=== PATIENT | female | born 1970 | race Two or more races ===

== ENCOUNTER 2021-05-17 16:57 | Inpatient (IN) | payer SELFPAY ==
[~2021-05-17] VITALS: Ht 165.1 cm; Wt 86.2 kg
[2021-05-17] VITALS (7 sets, daily range): BP systolic 139–165; BP diastolic 95–117
[2021-05-17] MEDS: PROPOFOL 100 ML IV PRN ×2 (17:08→23:37)
[2021-05-17] MEDS ORDERED: fentaNYL PF VIAL 100 MCG/2 ML VIAL IVP ONE (17:15)
[2021-05-17] MEDS ORDERED: MIDAZOLAM HCL/PF 5 MG/5 ML VIAL. IVP PRN (17:15)
[2021-05-17] MEDS ORDERED: IV NORMAL SALINE 1000ML BAG 1,000 ML IV ONE ×2 (17:15→19:00)
--- NOTE | 2021-05-17 17:17 | RAD ---
Exam: Chest one view INDICATION: Post intubation TECHNIQUE: Frontal view of the chest Comparisons: None FINDINGS: Endotracheal tube with tip approximately 3 cm above the albertina. The cardiomediastinal silhouette and pulmonary vessels are within normal limits. Subtle patchy bilateral airspace disease. No pleural effusion IMPRESSION: 1. Lines and tubes described above. 2. Subtle patchy bilateral airspace disease. Electronically signed by: Tova Goldstein MD (05/17/2021 5:15 PM) [place]
[2021-05-17 17:28] LABS: ACETAMIN < 2 mcg/ml (10-30); ETHANOL < 10 mg/dL (0-10); MAGNESIUM 1.8 mg/dL (1.8-2.4); PHOSPHORUS 6.1 mg/dL (2.6-4.7); SALIC 2.4 mg/dL (2.8-20.0)
[2021-05-17 17:35] LABS: BASO # 0.2 x10^3/uL (0.0-0.2); BASO % 1 % (0-3); EOS # 0.1 x10^3/uL (0.0-0.7); EOS % 0 % (0-3); HEMATOCRIT 46.2 % (36.0-47.0); HEMOGLOBIN 14.2 g/dL (12.0-15.5); LYMPH # 5.9 x10^3/uL (1.0-4.8); LYMPH % 25 % (24-48); MEAN CORPUSCULAR HEMOGLOBIN 33 pg (25-35); MEAN CORPUSCULAR HGB CONC 31 g/dL (31-37); MEAN CORPUSCULAR VOLUME 107 fL (79-100); MONO # 1.3 x10^3/uL (0.0-1.1); MONO % 6 % (0-9); NEUT # 16.2 x10^3/uL (1.8-7.7); NEUT % 68 % (31-73); PLATELET COUNT 538 x10^3/uL (140-400); RED BLOOD COUNT 4.32 x10^6/uL (3.50-5.40); RED CELL DISTRIBUTION WIDTH 14.6 % (11.5-14.5); WHITE BLOOD COUNT 23.6 x10^3/uL (4.0-11.0)
[2021-05-17 17:39] LABS: BASE EXCESS COOX -16 mmol/L (-3-3); HCO3 COOX 14 mmol/L (21-28); METHEMOGLOBIN 0.6 % (0.0-1.9); OXYHEMOGLOBIN 97.8 %; PCO2 COOX 50 mmHg (35-46); PO2 COOX 224 mmHg (75-108); SAT O2 COOX 99 % (92-99)
--- NOTE | 2021-05-17 17:39 | PHYS DOC ---
Past Medical History Additional Past Medical Histor: HTN, ALCOHOL ABUSE (KARLA HARTMANN DO) Past Surgical History: Tubal ligation (KARLA HARTMANN DO) General Adult EDM: Chief Complaint: SEIZURE HPI: HPI: 51-year-old female past medical history (per EMR review) of HTN and alcohol abuse, presents to the ED brought in by EMS after family members found patient unresponsive. No response with 0.5 mg Narcan IV. Patient started to seize with EMS and 10 mg of Versed was given. Patient being bagged upon ED arrival with facial cyanosis. Mother told ems that pt attempted suicide in 2006 and pt lost her son in 2018. (KARLA HARTMANN DO) Review of Systems: Review of Systems: Review of systems unobtainable due to medical condition (KARLA HARTMANN DO) Heart Score: C/O Chest Pain: N/A Risk Factors: Risk Factors: DM, Current or recent (<one month) smoker, HTN, HLP, family history of CAD, obesity. Risk Scores: Score 0 - 3: 2.5% MACE over next 6 weeks - Discharge Home Score 4 - 6: 20.3% MACE over next 6 weeks - Admit for Clinical Observation Score 7 - 10: 72.7% MACE over next 6 weeks - Early Invasive Strategies (KARLA HARTMANN DO) Current Medications: Current Medications Medications (Trade) Dose Ordered Sig/Anna Start Time Stop Time Status Last Admin Dose Admin Fentanyl Citrate (Fentanyl 2ml Vial) 100 mcg 1X ONCE 05/17/21 17:15 05/17/21 17:16 UNV Metoprolol Tartrate (Lopressor Vial) 5 mg 1X ONCE 05/17/21 17:45 05/17/21 17:46 UNV Midazolam HCl (Versed) 5 mg PRN 1X PRN 05/17/21 17:15 05/18/21 17:14 UNV Propofol 100 ml @ 0 mls/hr CONT PRN 05/17/21 17:15 UNV Sodium Chloride 1,000 ml @ 1,000 mls/hr 1X ONCE 05/17/21 17:15 05/17/21 18:14 UNV (KARLA HARTMANN DO) Physical Exam: PE: Constitutional: afebrile, central cyanosis, no hypertension after intubation HENT: Normocephalic, atraumatic, moist mucous membranes, suspect seizure activity - eyes and face twitching Eyes: Facial cyanosis, EOMI, conjunctiva normal, no discharge. Neck: Normal range of motion, supple, Cardiovascular: S1/2 present, tachycardic on arrival Lungs & Thorax: With agonal breathing, BVM on arrival with oral airway, bilateral breath sounds Abdomen: soft, no tenderness, obese Skin: Warm, dry, Extremities: no deformity, no lower extremity edema Neurologic: GCS6 E2V1M3, lifts up her right arm but it is repeativelty shaking (suspect more seizure activity), [facility] Current Patient Data: Labs: Laboratory Tests Test 05/17/21 17:00 Phosphorus Level 6.1 mg/dL (2.6-4.7) H Magnesium Level 1.8 mg/dL (1.8-2.4) Ammonia 71 mcmol/L (11-34) H Creatine Kinase 99 U/L (26-192) Salicylates Level 2.4 mg/dL (2.8-20.0) L Salicylate Last Dose Date Unknown Salicylate Last Dose Time Unknown Acetaminophen Level < 2 mcg/ml (10-30) L Acetaminophen Last Dose Date Unknown Acetaminophen Last Dose Time Unknonw Ethyl Alcohol Level < 10 mg/dL (0-10) Vital Signs: Vital Signs Date Time Temp Pulse Resp B/P (MAP) Pulse Ox O2 Delivery O2 Flow Rate FiO2 05/17/21 17:00 98 Ventilator 05/17/21 16:57 160 12 126/82 (97) 25.0 ([facility] ) EKG: EK sinus tachycardia 158, NAD, QTC 511, no T wave inversion, no ST elevation or ST depression ([facility] Radiology/Procedures: Radiology/Procedures: IMAGING REPORT Signed PATIENT: SANTO ATWOOD ACCOUNT: [id number] : 07/19/1969 LOCATION: ER AGE: 51 SEX: F EXAM STATUS: PRE ER ORD. PHYSICIAN: JESENIA LANGLEY APRN REASON: post intubation PROCEDURE: CHEST AP ONLY Exam: Chest one view INDICATION: Post intubation TECHNIQUE: Frontal view of the chest Comparisons: None FINDINGS: Endotracheal tube with tip approximately 3 cm above the albertina. The cardiomediastinal silhouette and pulmonary vessels are within normal limits. Subtle patchy bilateral airspace disease. No pleural effusion IMPRESSION: 1. Lines and tubes described above. 2. Subtle patchy bilateral airspace disease. Electronically signed by: Tova Rossi MD (05/17/2021 5:15 PM) [facility] DICTATED and SIGNED BY: TOVA ROSSI MD DATE: 05/17/21 [id number] Indication: Respiratory failure Consent: Unable to give consent due to emergent nature. Medications Used: see nursing note Procedure: The patient was placed in the appropriate position. Intubation was performed via medic with my supervision, 7.5 ett, 22 at the lip, secured with RT device. Initial confirmation of placement included adequate colorimetry, bilateral breath sounds, tube fogging, adequate chest rise, adequate pulse oximetry reading. A chest x-ray to verify correct placement of the tube showed appropriate tube position. The patient tolerated the procedure well. Complications: none. (KARLA HARTMANN DO) Course & Med Decision Making: Course & Med Decision Making Pertinent Labs and Imaging studies reviewed. (See chart for details) Concern for altered mental status with seizure-like activity and agonal respirations (DTS?, hyperammonemia?). Patient was intubated on ED arrival for airway protection. Systolic blood pressure after intubation was 130 but increased to 225. 1 dose of Lopressor given. Patient requiring additional doses of sedation, which could contribute to her blood pressure. Patient is tachycardic with a large white count and elevated ammonia. Broad spectrum abx started. Due to shift change pt was signed out to oncoming physician for further medical evaluation and dispo to the ICU. Critical Care: Authorized and Performed by: Karla Hartmann DO Total critical care time: approximately 30 minutes Due to a high probability of clinically significant, life threatening deterioration, the patient required my highest level of preparedness to intervene emergently and I personally spent this critical care time directly and personally managing the patient. This critical care time included obtaining a history; examining the patient; pulse oximetry; ventilator management if necessary; ordering and review of studies; arranging urgent treatment with development of a management plan; evaluation of patient's response to treatment; frequent reassessment; discussion with patient/family; and, discussions with other providers. This critical care time was performed to assess and manage the high probability of imminent, life-threatening deterioration that could result in multi-organ failure. It was exclusive of separately billable procedures and treating other patients and teaching time. Please see MDM section and the rest of the note for further information on patient assessment and treatment. (KARLA HARTMANN DO) Course & Med Decision Making Assumed care at shift change disposition pending labs radiologic imaging and reevaluation. CT imaging no acute abnormalities chest x-ray appears to be questionable pneumonia. Patient was febrile she was treated with rectal Tylenol. Patient flags for sepsis 2 L of fluids ordered patient received antibiotics from ordered by Dr. Hartmann. Patient's blood pressure noted to be elevated we will treat with labetalol 20 mg. Patient is currently sedated on propofol. Patient had episode where she started pulling at the tube. Patient required 2 propofol boluses 40 each. Results reviewed and discussed with daughter. Discussed patient with hospitalist (SUKH ROSALES DO) Dragon Disclaimer: Andria Disclaimer: This electronic medical record was generated, in whole or in part, using a voice recognition dictation system. (KARLA HARTMANN DO) Departure Departure Impression: Primary Impression: Altered mental status Additional Impressions: Seizure-like activity Sepsis Pneumonia Disposition: ADMITTED INPATIENT Condition: CRITICAL Referrals: NON,STAFF (PCP) KARLA HARTMANN DO May 17, 2021 17:38 SUKH ROSALES DO May 17, 2021 19:40
[2021-05-17 17:44] LABS: CALCIUM 8.9 mg/dL (8.5-10.1); CREATININE 1.1 mg/dL (0.6-1.0); GFR 52.2; POTASSIUM 3.2 mmol/L (3.5-5.1)
[2021-05-17] MEDS ORDERED: METOPROLOL IV PUSH 5 MG/5 ML VIAL. IVP ONE (17:45)
[2021-05-17] MEDS ORDERED: MULTIVIT INFUSN,ADULT 4,VIT K 10 ML, THIAMINE INJ 100 MG, FOLIC ACID INJ 1 MG in IV NOR... IV ONE (17:45)
[2021-05-17 17:50] LABS: ALBUMIN 3.8 g/dL (3.4-5.0); ALBUMIN/GLOBULIN RATIO 0.9 (1.0-1.7); DIRECT BILIRUBIN 0.1 mg/dL (0.0-0.2); TOTAL BILIRUBIN 0.1 mg/dL (0.2-1.0); TOTAL PROTEIN 7.9 g/dL (6.4-8.2)
[2021-05-17 17:58] LABS: BILIRUBIN,URINE NEGATIVE (NEG); CLARITY,URINE CLEAR; COLOR,URINE YELLOW; NITRITE,URINE NEGATIVE (NEG); PH,URINE 5.5 (<5.0-8.0); PROTEIN,URINE >=300 mg/dL (NEG-TRACE); UROBILINOGEN,URINE 0.2 mg/dL (0.2 mg/dL)
[2021-05-17] MEDS ORDERED: PROPOFOL 10 MG/ML (20ML) VIAL. IV ONE ×3 (18:00→19:30)
[2021-05-17] MEDS ORDERED: ETOMIDATE 20 MG/10 ML VIAL. IV ONE (18:00)
[2021-05-17] MEDS ORDERED: SUCCINYLCHOLINE 200 MG/10 ML VIAL. IV ONE (18:00)
[2021-05-17 18:05] LABS: BACTERIA,URINE 0 /HPF (0-FEW); BARBITURATES NEG (NEG); BENZODIAZEPINES POS (NEG); CANNABINOIDS POS (NEG); COCAINE NEG (NEG); METHADONE NEG (NEG); OPIATES NEG (NEG); PHENCYCLIDINE NEG (NEG); RBC,URINE OCC /HPF (0-2); WBC,URINE 0 /HPF (0-4)
[2021-05-17 18:07] LABS: AMPHETAMINE/METHAMPHETAMINE NEG (NEG)
[2021-05-17] MEDS ORDERED: COLC0.6C3 PO (18:11)
[2021-05-17] MEDS ORDERED: METO100T7 PO (18:11)
--- NOTE | 2021-05-17 18:29 | RAD ---
Exam Date: 05/17/2021 5:[address] HEAD AND C-SPINE WO Indication: Reason: change in mental status, SEIZURE, UNRESPONSIVE / Spl. Instructions: / History: . One or more of the following dose reduction techniques were utilized: *Automated exposure control (AEC) *Adjustment of mA and/or kV according to patient size *Use of iterative reconstruction technique *CT scan done according to ALARA, or ALARA/IMAGE GENTLY EXAMINATION: CT OF THE HEAD WITHOUT CONTRAST INDICATION: Trauma, head injury, headache; TECHNIQUE: Noncontrast helical axial CT images of the head were obtained. FINDINGS: The ventricles and sulci are normal for the patient's stated age. There is no evidence of acute int racranial hemorrhage, extra-axial collection, mass effect, midline shift, or acute territorial infarc t. No lesion of the skull base or the calvarium is seen. The visualized paranasal sinuses, mastoid ai r cells, and orbits are normal in appearance. IMPRESSION: No evidence for acute intracranial abnormality. EXAMINATION: CT OF THE CERVICAL SPINE WITHOUT CONTRAST Clinical Indication: Cervical spine pain after trauma Technique: Thin cut helical axial CT images through the cervical spine were obtained without contrast on a multi-detector CT scanner. Source data was then reconstructed into sagittal and coronal planes. Findings: Motion artifact limits evaluation slightly. Alignment is maintained without spondylolisthesis. Vertebral body heights are maintained without acute fracture. Mild multilevel degenerative changes ar e noted. No significant prevertebral soft tissue swelling is demonstrated. No severe osseous central canal stenosis is seen. Endotracheal tube is noted. Impression: No evidence of acute cervical spine fracture or subluxation. Electronically signed by: Jj Caceres MD (05/17/2021 6:27 PM) [facility]
[2021-05-17] MEDS ORDERED: PIPERACILLIN/TAZOBACTAM 4.5 GM in IV NORMAL SALINE 100ML 100 ML IV ONE (18:30)
[2021-05-17 18:48] LABS: % BANDS 10 % (0-9); % EOS 1 % (0-5); % LYMPHS 24 % (24-48); % MONOS 6 % (0-10); % SEGS 59 % (35-66)
[2021-05-17 18:49] LABS: PLT ESTIMATE INCREASED (ADEQUATE)
--- NOTE | 2021-05-17 18:51 | RAD ---
Exam Date: 05/17/2021 6:21 PM XR CHEST 1V Indication: Reason: confirm ogt / Spl. Instructions: / History: . Comparison: May 17, 2021 at 5:03 PM FINDINGS/ IMPRESSION: Endotracheal tube terminates 3 cm above the albertina. Nasogastric tube extends below the diaphragm and below the lower margin of the exam. Patchy lung infiltrates are unchanged. Cardiac silhouette is u nchanged. No pneumothorax. Calcified granuloma in the left lung base again noted. No pleural effus ion. Electronically signed by: Jj Caceres MD (05/17/2021 6:49 PM) [facility]
[2021-05-17] MEDS ORDERED: VANCOMYCIN 2 GM in IV NORMAL SALINE 500ML BAG 500 ML IV ONE (19:00)
[2021-05-17] MEDS ORDERED: ACETAMINOPHEN 650 MG SUPP.RECT. PR ONE (19:30)
[2021-05-17] MEDS ORDERED: MIDAZOLAM HCL/PF 5 MG/5 ML VIAL. ONE (19:43)
[2021-05-17] MEDS ORDERED: CONTRAST GIVEN. MC PRN (20:00)
[2021-05-17] MEDS ORDERED: ACETAMINOPHEN 325 MG TABLET. PO PRN (20:00)
[2021-05-17] MEDS ORDERED: LABETALOL 20 MG/4 ML DISP.SYRIN. IVP ONE (20:00)
[2021-05-17] MEDS ORDERED: ONDANSETRON PF 4 MG/2 ML VIAL. IVP PRN (20:00)
[2021-05-17] MEDS ORDERED: IOHEXOL 350 MG/ML 100 ML VIAL. IV ONE (20:00)
[2021-05-17] MEDS: VANCOMYCIN PER PHARMACY MC PRN ×2 (20:53→21:03)
--- NOTE | 2021-05-17 21:07 | NUR ---
Pharmacy Vancomycin Dosing Note S:Consulted to monitor and dose vancomycin started 05/17/21. O:SANTO ATWOOD is a 50 year old F with Sepsis Pneumonia . Height: 5 feet, 6 inches Weight: 91.0 kg [place] Body Weight: 59.30 Adjusted Body Weight: 71.98 Dosing Weight: Actual Other Antibiotics: zOSYN 3.375GM ivpb Q6HRS LABS: Last BUN: 12 Last Creatinine: 1.1 Creatinine Clearance: 69 mL/min Last WBC: 23.6 Last Procalcitonin: Tmax (past 24 hours): Microbiology: I/O: Drug Levels: Last level: on at Last dose given 05/17/21 at 1947 Vancomycin Dosing: Loading Dose: 2000 mg x1 Dosing Weight: Actual Target Trough: 15-20 A: Based on weight and est. CrCl: P: 1. Vancomycin 2000mg, followed by Vancomycin 1250 mg IV q12h. 2. Follow up Trough level on 05/19/21 at 0730. 3. Pharmacy will continue to monitor, follow and adjust therapy as needed. Art Jarrett [facility], 05/17/21 0680
--- NOTE | 2021-05-17 21:52 | RAD ---
Exam: CT of chest with contrast INDICATION: Tachycardia TECHNIQUE: Sequential axial images through the chest obtained following the administration of 90 mL o f Omni 350 IV contrast. Sagittal and coronal reformatted images were reconstructed from the axial gavi a and reviewed. 3-D reformatted images were reconstructed from the axial data and reviewed. Exposure: One or more of the following in the visualized dose reduction techniques were utilized for this examination: 1. Automated exposure control 2. Adjustment of the MA and/or KV according to patient size 3. Use of iterative of reconstructive technique Comparisons: Chest x-ray same day FINDINGS: Visualized portions of the thyroid are unremarkable. No enlarged mediastinal lymph nodes are identifi ed. Heart size is normal. No pericardial effusion. Thoracic aorta has normal course and caliber. Pulmonar y artery is not enlarged. No pulmonary embolus identified within the main lobar or proximal segmental pulmonary arteries. Evaluation distally limited secondary to respiratory motion. Endotracheal tube noted in the trachea. Small amount of debris noted layering in the trachea. Airways are otherwise patent. Strandy opacities the dependent portion lungs likely representing atelectasis. No pleural effusion or thickening. Visualized upper abdomen is unremarkable. No suspicious osseous lesions or acute fractures. IMPRESSION: 1. No pulmonary embolus identified within the main, lobar or proximal segmental pulmonary arteries. Limitations as described above. 2. Small amount of mucous noted in the trachea. Electronically signed by: Tova Goldstein MD (05/17/2021 9:50 PM) [facility]
--- NOTE | 2021-05-17 22:30 | NUR ---
Admitted to ICU room #107 from ED. Sepsis and Covid PUI. Report received from ED [place]. Patient arrived with Propofol infusing at 50mcg, Fentanyl at 50mcg and vanco infusing. 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 ABXs and covid pending, nasal swabbed in ED. Darrick advised patient continues to fight the vent. Rapid titration of versed and precedex until patient Rass -2 and stable vent. Will continue to monitor.
[2021-05-17] MEDS: MIDAZOLAM 100mg/100ml NS BAG 100 ML IV PRN (22:53)
[2021-05-17] MEDS: DEXMEDETOMIDINE 400 MCG in IV NORMAL SALINE 100ML 96 ML IV PRN (22:54)
[2021-05-17] MEDS: FAMOTIDINE 20 MG/2 ML VIAL IVP SCH (23:38)
[2021-05-17] MEDS: ENOXAPARIN 40 MG/0.4 ML SYRINGE. SQ SCH (23:38)
[2021-05-17] MEDS: ACETAMINOPHEN 650 MG/20.3 ML SOLUTION. PO PRN (23:38)
[2021-05-17] MEDS: PIPERACILLIN/TAZOBACTAM 3.375 GM in IV NORMAL SALINE 50ML 50 ML IV SCH (23:39)
[2021-05-18] VITALS (24 sets, daily range): BP systolic 85–140; BP diastolic 56–99
[2021-05-18 01:07] LABS: BASE EXCESS ABG -4 mmol/L (-3-3); HCO3 ABG 19 mmol/L (21-28); PCO2 ABG 27 mmHg (35-46); PO2 ABG 134 mmHg (75-108); SAT O2 ABG 99 % (92-99)
--- NOTE | 2021-05-18 01:39 | EKG ---
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
[2021-05-18] MEDS: DEXMEDETOMIDINE 400 MCG in IV NORMAL SALINE 100ML 96 ML IV PRN ×2 (02:17→20:27)
[2021-05-18] MEDS ORDERED: ATOR40TA59 PO (03:18)
[2021-05-18] MEDS ORDERED: DILT240C33 PO (03:18)
[2021-05-18] MEDS ORDERED: HYDR-2145 PO (03:18)
[2021-05-18] MEDS ORDERED: OMEP-203 PO (03:18)
[2021-05-18] MEDS ORDERED: CEFD300C PO (03:18)
[2021-05-18] MEDS ORDERED: DAPA10TA PO (03:18)
[2021-05-18] MEDS ORDERED: METF-658 PO (03:18)
[2021-05-18] MEDS ORDERED: CHLO25TA10 PO (03:18)
[2021-05-18] MEDS ORDERED: PRED2.5T PO (03:18)
[2021-05-18 05:09] LABS: FIO2 ABG 60
[2021-05-18] MEDS: PIPERACILLIN/TAZOBACTAM 3.375 GM in IV NORMAL SALINE 50ML 50 ML IV SCH ×4 (05:44→23:36)
[2021-05-18] MEDS: PROPOFOL 100 ML IV PRN ×2 (05:48→18:00)
--- NOTE | 2021-05-18 06:52 | PDOC1 ---
History and Physical Date of Admission Date of Admission DATE: 05/18/21 TIME: 06:52 Identification/Chief Complaint Chief Complaint Altered mental status, seizure Source Source: Caregiver, Chart review History of Present Illness History of Present Illness Ms Huddleston is a 51-year-old female past medical history HTN and alcohol abuse who presents to the ED brought in by EMS after family member (Son?) found patient unresponsive. She was initially minimally arousable with 0.5 mg Narcan IV and monterroso d seizure-like activity noted and 10 mg of Versed was given and she became hypoxic and stopped breathing and required bag valve mask. Family told ems that pt attempted suicide in 2006 and pt lost her son in 2018. ED staff noted patient was cyanotic appearing and still requiring bag valve mask ventilation and the decision was made to emergently intubate for airway protection and safe respirations. Labs with WBC 23.6 Hb 14.2 MCV 107 platelets 538 NA 140 1K3.2, BUN 12, CR 1.1, glucose 280, lactic acid 17.3, phosphorus 6.1 magnesium 1.8 LFTs within normal laboratory limits high-sensitivity troponin is 21, ammonia 71 CK 99, ABG 7.0 7/50/224, urine drug screen positive for benzodiazepines and cannabinoids, UA with small blood glucose and protein, rapid COVID-[address] head and cervical spine with no acute abnormalities, due to tachycardia she underwent CT pulmonary angiogram negative for pulmonary embolism. Chest radiograph with good ET tube and NGT positioning EKG appears sinus tachycardia 158, NAD, QTC 511, no T wave inversion, no ST elevation or ST depression Admitted to ICU for further care Past Medical History Cardiovascular: HTN Psych: Addictions Past Surgical History Past Surgical History: Tubal Ligation Family History Family History: Diabetes, Hypertension Social History Smoke: No ALCOHOL: heavy Drugs: Marijuana Current Problem List Problem List Problems Medical Problems: (1) Altered mental status Status: Acute (2) Pneumonia Status: Acute (3) Seizure-like activity Status: Acute (4) Sepsis Status: Acute Current Medications Current Medications Current Medications Fentanyl Citrate 30 ml @ 0 mls/hr CONT PRN IV SEE PROTOCOL Last administered on 05/18/21at 00:59; Start 05/17/21 at 17:15 Propofol 100 ml @ 2.73 mls/hr CONT PRN IV PER PROTOCOL Last administered on 05/18/21at 05:48; Start 05/17/21 at 17:15 Midazolam HCl (Versed) 5 mg PRN 1X PRN IVP VENT INDUCTION Last administered on 05/17/21at 17:49; Start 05/17/21 at 17:15; Stop 05/17/21 at 17:49; Status DC Sodium Chloride 1,000 ml @ 1,000 mls/hr 1X ONCE IV Last administered on 05/17/21at 16:57; Start 05/17/21 at 17:15; Stop 05/17/21 at 18:14; Status DC Fentanyl Citrate (Fentanyl 2ml Vial) 100 mcg 1X ONCE IVP Last administered on 05/17/21at 17:15; Start 05/17/21 at 17:15; Stop 05/17/21 at 17:40; Status DC Metoprolol Tartrate (Lopressor Vial) 5 mg 1X ONCE IVP Last administered on 05/17/21at 17:45; Start 05/17/21 at 17:45; Stop 05/17/21 at 17:46; Status DC Multivitamins 10 ml/Thiamine HCl 100 mg/Folic Acid 1 mg/Sodium Chloride 1,011.2 ml @ 1,000.088 mls/hr 1X ONCE IV Last administered on 05/17/21at 19:45; Start 05/17/21 at 17:45; Stop 05/17/21 at 18:45; Status DC Etomidate (Amidate) 20 mg 1X ONCE IV Last administered on 05/17/21at 16:58; Start 05/17/21 at 18:00; Stop 05/17/21 at 18:02; Status DC Succinylcholine Chloride (Anectine) 100 mg 1X ONCE IV Last administered on 05/17/21at 16:58; Start 05/17/21 at 18:00; Stop 05/17/21 at 18:02; Status DC Propofol (Diprivan) 100 mg 1X ONCE IV Last administered on 05/17/21at 17:06; Start 05/17/21 at 18:00; Stop 05/17/21 at 18:02; Status DC Piperacillin Sod/ Tazobactam Sod 4.5 gm/Sodium Chloride 100 ml @ 200 mls/hr 1X ONCE IV Last administered on 05/17/21at 18:16; Start 05/17/21 at 18:30; Stop 05/17/21 at 18:59; Status DC Vancomycin HCl (Vanco Per Pharmacy) 1 each PRN DAILY PRN MC SEE COMMENTS Last administered on 05/17/21at 21:03; Start 05/17/21 at 18:00 Vancomycin HCl 2 gm/Sodium Chloride 500 ml @ 250 mls/hr 1X ONCE IV Last administered on 05/17/21at 19:47; Start 05/17/21 at 19:00; Stop 05/17/21 at 20:59; Status DC Sodium Chloride 1,000 ml @ 1,000 mls/hr 1X ONCE IV Last administered on 05/17/21at 19:00; Start 05/17/21 at 19:00; Stop 05/17/21 at 19:59; Status DC Propofol (Diprivan) 40 mg 1X ONCE IV Last administered on 05/17/21at 19:30; Start 05/17/21 at 19:30; Stop 05/17/21 at 19:31; Status DC Propofol (Diprivan) 40 mg 1X ONCE IV Last administered on 05/17/21at 17:45; Start 05/17/21 at 19:30; Stop 05/17/21 at 19:31; Status DC Acetaminophen (Tylenol Supp) 650 mg 1X ONCE OH Last administered on 05/17/21at 19:34; Start 05/17/21 at 19:30; Stop 05/17/21 at 19:31; Status DC Midazolam HCl (Versed) 5 mg STK-MED ONCE .ROUTE ; Start 05/17/21 at 19:43; Stop 05/17/21 at 19:43; Status DC Labetalol HCl (Normodyne Iv Push) 20 mg 1X ONCE IVP Last administered on 05/17/21at 20:28; Start 05/17/21 at 20:00; Stop 05/17/21 at 20:01; Status DC Lorazepam (Ativan Inj) 2 mg 1X ONCE IVP Last administered on 05/17/21at 20:05; Start 05/17/21 at 20:00; Stop 05/17/21 at 20:01; Status DC Iohexol (Omnipaque 350 Mg/ml) 90 ml 1X ONCE IV Last administered on 05/17/21at 20:00; Start 05/17/21 at 20:00; Stop 05/17/21 at 20:01; Status DC Info (CONTRAST GIVEN -- Rx MONITORING) 1 each PRN DAILY PRN MC SEE COMMENTS; Start 05/17/21 at 20:00; Stop 05/19/21 at 19:59 Acetaminophen (Tylenol) 650 mg PRN Q6HRS PRN PO MILD PAIN / TEMP > 100.3'F; Start 05/17/21 at 20:00 Ondansetron HCl (Zofran) 4 mg PRN Q4HRS PRN IVP NAUSEA/VOMITING; Start 05/17/21 at 20:00 Enoxaparin Sodium (Lovenox 40mg Syringe) 40 mg Q24H SQ Last administered on 05/17/21at 23:38; Start 05/17/21 at 20:00 Famotidine (Pepcid Vial) 20 mg BID IVP Last administered on 05/17/21at 23:38; Start 05/17/21 at 21:00 Piperacillin Sod/ Tazobactam Sod 3.375 gm/Sodium Chloride 50 ml @ 100 mls/hr Q6HRS IV Last administered on 05/18/21at 05:44; Start 05/18/21 at 00:00 Midazolam HCl 100 ml @ 1 mls/hr CONT PRN IV SEE PROTOCOL Last administered on 05/17/21at 22:53; Start 05/17/21 at 21:00 Propofol 100 ml @ 2.73 mls/hr CONT PRN IV PER PROTOCOL; Start 05/17/21 at 21:00 Dexmedetomidine HCl 400 mcg/ Sodium Chloride 100 ml @ 4.55 mls/hr CONT PRN IV PER PROTOCOL Last administered on 05/18/21at 02:17; Start 05/17/21 at 21:00 Vancomycin HCl 1.25 gm/Sodium Chloride 250 ml @ 167 mls/hr Q12H IV ; Start 05/18/21 at 08:00 Vancomycin HCl (Vancomycin Trough Level) 1 each 1X ONCE MC ; Start 05/19/21 at 07:30; Stop 05/19/21 at 07:31 Acetaminophen (Tylenol) 650 mg PRN Q6HRS PRN PO MILD PAIN / TEMP > 100.3'F Last administered on 05/17/21at 23:38; Start 05/17/21 at 23:15 Active Scripts Active Reported Prednisone 2.5 Mg Tablet 2 Tab PO DAILY Farxiga (Dapagliflozin Propanediol) 10 Mg Tablet 10 Mg PO UD Hydrochlorothiazide Tablet (Hydrochlorothiazide) 25 Mg Tablet 25 Mg PO DAILY Atorvastatin Calcium 40 Mg Tablet 1 Tab PO DAILY Metformin Hcl Er (Metformin Hcl) 500 Mg Tab.er.24h 500 Mg PO DAILYWBKFT Diltiazem 24Hr Cd (Diltiazem HCl) 240 Mg Cap.er.24h 1 Cap PO DAILY 30 Days Cefdinir 300 Mg Capsule 1 Cap PO BID Chlorthalidone (Chlorthalidone) 25 Mg Tablet 50 Mg PO DAILY Omeprazole Magnesium 20 Mg Capsule.dr 1 Cap PO DAILY 30 Days Metoprolol Tartrate 100 Mg Tablet 1 Tab PO BID Colchicine 0.6 Mg Capsule 0.6 Mg PO Allergies Allergies: Coded Allergies: No Known Drug Allergies (Unverified , 05/17/21) ROS Review of System Unable to obtain, sedated on ventilator Physical Exam General: Other (Sedated on vent) HEENT: PERRLA, Mucous membr. moist/pink Lungs: Other (Bibasilar rhonchi) Heart: S1S2, RRR, no thrills, no rubs, no gallops, no murmurs Abdomen: Normal bowel sounds, Soft, No tenderness, No hepatosplenomegaly, No masses Extremities: No clubbing, No cyanosis, No edema, Normal pulses, No tender ness/swelling Skin: No rashes, No breakdown, No significant lesion Neuro: Reflexes 2+ Psych/Mental Status: Other (Sedated) Vitals Vitals Vital Signs Date Time Temp Pulse Resp B/P (MAP) Pulse Ox O2 Delivery O2 Flow Rate FiO2 05/18/21 06:00 71 24 136/92 98 Ventilator 05/18/21 04:00 99.3 99.3 05/18/21 00:59 60.0 Labs Labs Laboratory Tests Test 05/17/21 17:00 05/17/21 17:30 05/17/21 17:45 05/17/21 17:53 White Blood Count 23.6 x10^3/uL (4.0-11.0) Red Blood Count 4.32 x10^6/uL (3.50-5.40) Hemoglobin 14.2 g/dL (12.0-15.5) Hematocrit 46.2 % (36.0-47.0) Mean Corpuscular Volume 107 fL (79-100) Mean Corpuscular Hemoglobin 33 pg (25-35) Mean Corpuscular Hemoglobin Concent 31 g/dL (31-37) Red Cell Distribution Width 14.6 % (11.5-14.5) Platelet Count 538 x10^3/uL (140-400) Neutrophils (%) (Auto) 68 % (31-73) Lymphocytes (%) (Auto) 25 % (24-48) Monocytes (%) (Auto) 6 % (0-9) Eosinophils (%) (Auto) 0 % (0-3) Basophils (%) (Auto) 1 % (0-3) Neutrophils # (Auto) 16.2 x10^3/uL (1.8-7.7) Lymphocytes # (Auto) 5.9 x10^3/uL (1.0-4.8) Monocytes # (Auto) 1.3 x10^3/uL (0.0-1.1) Eosinophils # (Auto) 0.1 x10^3/uL (0.0-0.7) Basophils # (Auto) 0.2 x10^3/uL (0.0-0.2) Segmented Neutrophils % 59 % (35-66) Band Neutrophils % 10 % (0-9) Lymphocytes % 24 % (24-48) Monocytes % 6 % (0-10) Eosinophils % 1 % (0-5) Platelet Estimate Increased (ADEQUATE) D-Dimer (Kaya) 0.72 ug/mlFEU (0.00-0.50) Sodium Level 141 mmol/L (136-145) Potassium Level 3.2 mmol/L (3.5-5.1) Chloride Level 98 mmol/L (98-107) Carbon Dioxide Level 14 mmol/L (21-32) Anion Gap 29 (6-14) Blood Urea Nitrogen 12 mg/dL (7-20) Creatinine 1.1 mg/dL (0.6-1.0) Estimated GFR (Cockcroft-Gault) 52.2 BUN/Creatinine Ratio 11 (6-20) Glucose Level 280 mg/dL (70-99) Lactic Acid Level 17.3 mmol/L (0.4-2.0) Calcium Level 8.9 mg/dL (8.5-10.1) Phosphorus Level 6.1 mg/dL (2.6-4.7) Magnesium Level 1.8 mg/dL (1.8-2.4) Total Bilirubin 0.1 mg/dL (0.2-1.0) Direct Bilirubin 0.1 mg/dL (0.0-0.2) Aspartate Amino Transf (AST/SGOT) 29 U/L (15-37) Alanine Aminotransferase (ALT/SGPT) 53 U/L (14-59) Alkaline Phosphatase 105 U/L (46-116) Ammonia 71 mcmol/L (11-34) Creatine Kinase 99 U/L (26-192) Troponin I High Sensitivity 21 ng/L (4-50) Total Protein 7.9 g/dL (6.4-8.2) Albumin 3.8 g/dL (3.4-5.0) Albumin/Globulin Ratio 0.9 (1.0-1.7) Salicylates Level 2.4 mg/dL (2.8-20.0) Salicylate Last Dose Date Unknown Salicylate Last Dose Time Unknown Acetaminophen Level < 2 mcg/ml (10-30) Acetaminophen Last Dose Date Unknown Acetaminophen Last Dose Time Unknonw Ethyl Alcohol Level < 10 mg/dL (0-10) O2 Saturation 99 % (92-99) Arterial Blood pH 7.07 (7.35-7.45) Arterial Blood pCO2 at Patient Temp 50 mmHg (35-46) Arterial Blood pO2 at Patient Temp 224 mmHg (75-108) Arterial Blood HCO3 14 mmol/L (21-28) Arterial Blood Base Excess -16 mmol/L (-3-3) Oxyhemoglobin 97.8 % Methemoglobin 0.6 % (0.0-1.9) Carbon Monoxide, Quantitative 0.3 % (0.0-1.9) FiO2 100 Glucose (Fingerstick) 265 mg/dL (70-99) Urine Collection Type Unknown Urine Color Yellow Urine Clarity Clear Urine pH 5.5 (<5.0-8.0) Urine Specific [place] 1.015 (1.000-1.030) Urine Protein >=300 mg/dL (NEG-TRACE) Urine Glucose (UA) 500 mg/dL (NEG) Urine Ketones (Stick) Negative mg/dL (NEG) Urine Blood Small (NEG) Urine Nitrite Negative (NEG) Urine Bilirubin Negative (NEG) Urine Urobilinogen Dipstick 0.2 mg/dL (0.2 mg/dL) Urine Leukocyte Esterase Negative (NEG) Urine RBC Occ /HPF (0-2) Urine WBC 0 /HPF (0-4) Urine Squamous Epithelial Cells Few /LPF Urine Bacteria 0 /HPF (0-FEW) Urine Mucus Slight /LPF Urine Opiates Screen Neg (NEG) Urine Methadone Screen Neg (NEG) Urine Barbiturates Neg (NEG) Urine Phencyclidine Screen Neg (NEG) Urine Amphetamine/Methamphetamine Neg (NEG) Urine Benzodiazepines Screen Pos (NEG) Urine Cocaine Screen Neg (NEG) Urine Cannabinoids Screen Pos (NEG) Urine Ethyl Alcohol Neg (NEG) Test 05/17/21 20:23 05/17/21 21:12 05/18/21 00:56 Lactic Acid Level 3.6 mmol/L (0.4-2.0) SARS-CoV-2 Antigen (Rapid) Negative (NEGATIVE) O2 Saturation 99 % (92-99) Arterial Blood pH 7.46 (7.35-7.45) Arterial Blood pCO2 at Patient Temp 27 mmHg (35-46) Arterial Blood pO2 at Patient Temp 134 mmHg (75-108) Arterial Blood HCO3 19 mmol/L (21-28) Arterial Blood Base Excess -4 mmol/L (-3-3) FiO2 60 Laboratory Tests Test 05/17/21 17:00 05/17/21 17:30 05/17/21 17:45 05/17/21 17:53 White Blood Count 23.6 x10^3/uL (4.0-11.0) Red Blood Count 4.32 x10^6/uL (3.50-5.40) Hemoglobin 14.2 g/dL (12.0-15.5) Hematocrit 46.2 % (36.0-47.0) Mean Corpuscular Volume 107 fL (79-100) Mean Corpuscular Hemoglobin 33 pg (25-35) Mean Corpuscular Hemoglobin Concent 31 g/dL (31-37) Red Cell Distribution Width 14.6 % (11.5-14.5) Platelet Count 538 x10^3/uL (140-400) Neutrophils (%) (Auto) 68 % (31-73) Lymphocytes (%) (Auto) 25 % (24-48) Monocytes (%) (Auto) 6 % (0-9) Eosinophils (%) (Auto) 0 % (0-3) Basophils (%) (Auto) 1 % (0-3) Neutrophils # (Auto) 16.2 x10^3/uL (1.8-7.7) Lymphocytes # (Auto) 5.9 x10^3/uL (1.0-4.8) Monocytes # (Auto) 1.3 x10^3/uL (0.0-1.1) Eosinophils # (Auto) 0.1 x10^3/uL (0.0-0.7) Basophils # (Auto) 0.2 x10^3/uL (0.0-0.2) Segmented Neutrophils % 59 % (35-66) Band Neutrophils % 10 % (0-9) Lymphocytes % 24 % (24-48) Monocytes % 6 % (0-10) Eosinophils % 1 % (0-5) Platelet Estimate Increased (ADEQUATE) D-Dimer (Kaya) 0.72 ug/mlFEU (0.00-0.50) Sodium Level 141 mmol/L (136-145) Potassium Level 3.2 mmol/L (3.5-5.1) Chloride Level 98 mmol/L (98-107) Carbon Dioxide Level 14 mmol/L (21-32) Anion Gap 29 (6-14) Blood Urea Nitrogen 12 mg/dL (7-20) Creatinine 1.1 mg/dL (0.6-1.0) Estimated GFR (Cockcroft-Gault) 52.2 BUN/Creatinine Ratio 11 (6-20) Glucose Level 280 mg/dL (70-99) Lactic Acid Level 17.3 mmol/L (0.4-2.0) Calcium Level 8.9 mg/dL (8.5-10.1) Phosphorus Level 6.1 mg/dL (2.6-4.7) Magnesium Level 1.8 mg/dL (1.8-2.4) Total Bilirubin 0.1 mg/dL (0.2-1.0) Direct Bilirubin 0.1 mg/dL (0.0-0.2) Aspartate Amino Transf (AST/SGOT) 29 U/L (15-37) Alanine Aminotransferase (ALT/SGPT) 53 U/L (14-59) Alkaline Phosphatase 105 U/L (46-116) Ammonia 71 mcmol/L (11-34) Creatine Kinase 99 U/L (26-192) Troponin I High Sensitivity 21 ng/L (4-50) Total Protein 7.9 g/dL (6.4-8.2) Albumin 3.8 g/dL (3.4-5.0) Albumin/Globulin Ratio 0.9 (1.0-1.7) Salicylates Level 2.4 mg/dL (2.8-20.0) Salicylate Last Dose Date Unknown Salicylate Last Dose Time Unknown Acetaminophen Level < 2 mcg/ml (10-30) Acetaminophen Last Dose Date Unknown Acetaminophen Last Dose Time Unknonw Ethyl Alcohol Level < 10 mg/dL (0-10) O2 Saturation 99 % (92-99) Arterial Blood pH 7.07 (7.35-7.45) Arterial Blood pCO2 at Patient Temp 50 mmHg (35-46) Arterial Blood pO2 at Patient Temp 224 mmHg (75-108) Arterial Blood HCO3 14 mmol/L (21-28) Arterial Blood Base Excess -16 mmol/L (-3-3) Oxyhemoglobin 97.8 % Methemoglobin 0.6 % (0.0-1.9) Carbon Monoxide, Quantitative 0.3 % (0.0-1.9) FiO2 100 Glucose (Fingerstick) 265 mg/dL (70-99) Urine Collection Type Unknown Urine Color Yellow Urine Clarity Clear Urine pH 5.5 (<5.0-8.0) Urine Specific [place] 1.015 (1.000-1.030) Urine Protein >=300 mg/dL (NEG-TRACE) Urine Glucose (UA) 500 mg/dL (NEG) Urine Ketones (Stick) Negative mg/dL (NEG) Urine Blood Small (NEG) Urine Nitrite Negative (NEG) Urine Bilirubin Negative (NEG) Urine Urobilinogen Dipstick 0.2 mg/dL (0.2 mg/dL) Urine Leukocyte Esterase Negative (NEG) Urine RBC Occ /HPF (0-2) Urine WBC 0 /HPF (0-4) Urine Squamous Epithelial Cells Few /LPF Urine Bacteria 0 /HPF (0-FEW) Urine Mucus Slight /LPF Urine Opiates Screen Neg (NEG) Urine Methadone Screen Neg (NEG) Urine Barbiturates Neg (NEG) Urine Phencyclidine Screen Neg (NEG) Urine Amphetamine/Methamphetamine Neg (NEG) Urine Benzodiazepines Screen Pos (NEG) Urine Cocaine Screen Neg (NEG) Urine Cannabinoids Screen Pos (NEG) Urine Ethyl Alcohol Neg (NEG) Test 05/17/21 20:23 05/17/21 21:12 05/18/21 00:56 Lactic Acid Level 3.6 mmol/L (0.4-2.0) SARS-CoV-2 Antigen (Rapid) Negative (NEGATIVE) O2 Saturation 99 % (92-99) Arterial Blood pH 7.46 (7.35-7.45) Arterial Blood pCO2 at Patient Temp 27 mmHg (35-46) Arterial Blood pO2 at Patient Temp 134 mmHg (75-108) Arterial Blood HCO3 19 mmol/L (21-28) Arterial Blood Base Excess -4 mmol/L (-3-3) FiO2 60 Images Images CHEST AP ONLY Endotracheal tube with tip approximately 3 cm above the albertina. The cardiomediastinal silhouette and pulmonary vessels are within normal limits. Subtle patchy bilateral airspace disease. No pleural effusion IMPRESSION: 1. Lines and tubes described above. 2. Subtle patchy bilateral airspace disease. CT HEAD AND C-SPINE WO FINDINGS: The ventricles and sulci are normal for the patient's stated age. There is no evidence of acute intracranial hemorrhage, extra-axial collection, mass effect, midline shift, or acute territorial infarct. No lesion of the skull base or the calvarium is seen. The visualized paranasal sinuses, mastoid air cells, and orbits are normal in appearance. IMPRESSION: No evidence for acute intracranial abnormality. EXAMINATION: CT OF THE CERVICAL SPINE WITHOUT CONTRAST Clinical Indication: Cervical spine pain after trauma Technique: Thin cut helical axial CT images through the cervical spine were obtained without contrast on a multi-detector CT scanner. Source data was then reconstructed into sagittal and coronal planes. Findings: Motion artifact limits evaluation slightly. Alignment is maintained without spondylolisthesis. Vertebral body heights are maintained without acute fracture. Mild multilevel degenerative changes are noted. No significant prevertebral soft tissue swelling is demonstrated. No severe osseous central canal stenosis is seen. Endotracheal tube is noted. Impression: No evidence of acute cervical spine fracture or subluxation. CTPA: Visualized portions of the thyroid are unremarkable. No enlarged mediastinal lymph nodes are identified. Heart size is normal. No pericardial effusion. Thoracic aorta has normal course and caliber. Pulmonary artery is not enlarged. No pulmonary embolus identified within the main lobar or proximal segmental pulmonary arteries. Evaluation distally limited secondary to respiratory motion. Endotracheal tube noted in the trachea. Small amount of debris noted layering in the trachea. Airways are otherwise patent. Strandy opacities the dependent portion lungs likely representing atelectasis. No pleural effusion or thickening. Visualized upper abdomen is unremarkable. No suspicious osseous lesions or acute fractures. IMPRESSION: 1. No pulmonary embolus identified within the main, lobar or proximal segmental pulmonary arteries. Limitations as described above. 2. Small amount of mucous noted in the trachea. VTE Prophylaxis Ordered VTE Prophylaxis Devices: No VTE Pharmacological Prophylaxi: Yes Assessment/Plan Assessment/Plan A/P: Acute encephalopathy - metabolic, possibly alcohol withdrawal, hepatic encephalopathy, sepsis Hypercapnic respiratory failure - likely related to seizure, possibly benzo related respiratory depression. Will monitor serial ABG on ventilator, consult pulmonology Seizure-like activity - possibly alcohol withdrawal, will maintain propofol, CIWA Sepsis - likely aspiration pneumonia vs pneumonitis, will give empiric zosyn, vancomycin Pneumonia - as above. High risk gram negative likely due to alcohol abuse history Alcohol abuse - likely in withdrawal Lactic acidosis - due to seizure vs sepsis. Will trend with fluids and antibiotics Electrolyte derangement -hypokalemia and hypo-Ozan anemia likely due to alcohol-related illness will replace. Hyperammonemia -possibly with underlying cirrhosis. No history of Depakote ingestion per family FEN - NPO, NGT feeds PPX - lovenox FULL CODE Dispo - ICU cc time 57 minutes Justifications for Admission Other Justification TODD ROBERSON MD May 18, 2021 06:52
[2021-05-18] MEDS ORDERED: LACTULOSE 20 GM/30 ML SOLUTION. PO PRN (07:00)
[2021-05-18] MEDS: VANCOMYCIN PER PHARMACY MC PRN ×2 (07:03→08:18)
[2021-05-18 07:45] LABS: BASO # 0.1 x10^3/uL (0.0-0.2); BASO % 1 % (0-3); EOS # 0.1 x10^3/uL (0.0-0.7); EOS % 1 % (0-3); HEMATOCRIT 34.3 % (36.0-47.0); HEMOGLOBIN 11.7 g/dL (12.0-15.5); LYMPH # 1.9 x10^3/uL (1.0-4.8); LYMPH % 19 % (24-48); MEAN CORPUSCULAR HEMOGLOBIN 33 pg (25-35); MEAN CORPUSCULAR HGB CONC 34 g/dL (31-37); MONO # 0.8 x10^3/uL (0.0-1.1); MONO % 8 % (0-9); NEUT # 7.1 x10^3/uL (1.8-7.7); NEUT % 72 % (31-73); PLATELET COUNT 300 x10^3/uL (140-400); RED BLOOD COUNT 3.49 x10^6/uL (3.50-5.40); RED CELL DISTRIBUTION WIDTH 13.7 % (11.5-14.5); WHITE BLOOD COUNT 9.8 x10^3/uL (4.0-11.0)
[2021-05-18 08:05] LABS: CALCIUM 7.5 mg/dL (8.5-10.1); CREATININE 0.9 mg/dL (0.6-1.0); MAGNESIUM 1.5 mg/dL (1.8-2.4); MEAN CORPUSCULAR VOLUME 98 fL (79-100); PHOSPHORUS 3.7 mg/dL (2.6-4.7)
[2021-05-18 08:07] LABS: POTASSIUM 2.4 mmol/L (3.5-5.1)
[2021-05-18] MEDS: VANCOMYCIN 1.25 GM in IV NORMAL SALINE 250ML 250 ML IV SCH ×2 (08:34→21:24)
[2021-05-18] MEDS: FAMOTIDINE 20 MG/2 ML VIAL IVP SCH ×2 (08:34→20:19)
[2021-05-18 08:41] LABS: BASE EXCESS ABG -4 mmol/L (-3-3); HCO3 ABG 18 mmol/L (21-28); PCO2 ABG 24 mmHg (35-46); PO2 ABG 68 mmHg (75-108); SAT O2 ABG 94 % (92-99)
[2021-05-18 08:58] LABS: FIO2 ABG 40/AC 24 450 +5
[2021-05-18] MEDS ORDERED: MAGNESIUM SULFATE 4GM 100 ML IV ONE (10:00)
[2021-05-18] MEDS ORDERED: DEXTROSE 50% 25 GM / 50ML DISP.SYRIN. IV PRN (11:00)
--- NOTE | 2021-05-18 11:10 | CONS ---
DATE OF CONSULTATION: 05/18/2021 PULMONARY CONSULTATION ATTENDING PHYSICIAN: Dr. Todd. REASON FOR CONSULTATION: Respiratory failure. HISTORY OF PRESENT ILLNESS: The patient is a 50-year-old female with past medical history of hypertension and alcohol abuse. She was brought into the [facility] after she was found unresponsive. She did not respond to Narcan. The patient had facial cyanosis on arrival. The patient had previous history of attempted suicide in 2007. The patient lost her son in 2018. She underwent CT angiogram and there was no evidence of pulmonary embolism. There was some basal atelectasis. The patient was intubated for airway protection. She was noted to be seizing prior to intubation. Her white cell count was 23,000, now down to 9.8. Her COVID rapid is negative. The patient's ABG showed a pH of 7.07, pCO2 of 50 and a pO2 of 224 initially and latest is 7.50, pCO2 of 24 and a pO2 of 68 on 40% FiO2 and 5 of PEEP. Rate of 24. The rate has been reduced to 18. I have been asked to see her for further evaluation. PAST MEDICAL HISTORY: Significant for history of hypertension, alcohol abuse, history of suicidal attempt in the past. PAST SURGICAL HISTORY: Tubal ligation. ALLERGIES: None. MEDICATIONS: Reviewed as listed in the MRAD. REVIEW OF SYSTEMS: Unable to obtain from the patient. SOCIAL HISTORY: Alcohol abuse. PHYSICAL EXAMINATION: VITAL SIGNS: Reviewed. Blood pressure is stable, pulse ox 98%. NECK: Supple. LUNGS: Clear. CARDIOVASCULAR: With a regular rate. ABDOMEN: Soft. EXTREMITIES: With no pitting edema. LABORATORY DATA: Reviewed. ABG discussed in my history of present illness. COVID rapid negative. Toxicology screen is positive for benzo and marijuana. D-dimer is 0.72. White cell count was 23.6, down to 9.8. IMPRESSION: 1. Acute respiratory failure secondary to toxic encephalopathy/ seizures. She has a history of alcohol abuse and urine drug screen also positive for benzodiazepines and marijuana. 2. Acute toxic encephalopathy secondary to above. 3. No evidence of pulmonary embolism. Mild elevation in D-dimer is nonspecific. 4. Hypokalemia. Currently, being corrected. 5. Procalcitonin 0.61, but no obvious signs of pneumonia at present. 6. History of alcohol abuse and suicidal attempt in the past. 7. Leukocytosis, likely reactive, but is now resolved. 8. Seizures, likely ETOH induced. RECOMMENDATIONS: 1. Continue present assist control mode changes based on ABGs. 2. We will take her off sedation in the next 24 hours and do a CPAP trial. 3. Empiric antibiotics for now. We will watch for any signs of aspiration. 4. Lovenox for DVT prophylaxis. 5. Stress ulcer prophylaxis. 6. Discussed with RN and RT. Discussed with Dr. Todd. We will follow along with you. ANUP DR: Clarice TID: [id number] MTDD
[2021-05-18] MEDS ORDERED: HALOPERIDOL LACTATE 5 MG/ML VIAL. IVP PRN (11:15)
[2021-05-18] MEDS ORDERED: cloNIDine HCL 0.1 MG TABLET PO PRN (11:15)
[2021-05-18] MEDS: POTASSIUM CL 20MEQ D5-0.45NACL 1,000 ML IV SCH ×2 (11:55→23:20)
[2021-05-18] MEDS: INSULIN LISPRO 300 UNITS/3 ML VIAL. SQ SCH ×3 (12:00→23:40)
[2021-05-18] MEDS: FOLIC ACID 1 MG TABLET. PO SCH (12:00)
[2021-05-18] MEDS: THIAMINE 100 MG TABLET. PO SCH (12:00)
[2021-05-18] MEDS: POTASSIUM CHLORIDE 20MEQ 100 ML IV SCH ×3 (14:59→18:01)
[2021-05-18] MEDS: MIDAZOLAM 100mg/100ml NS BAG 100 ML IV PRN (16:10)
[2021-05-18] MEDS: ENOXAPARIN 40 MG/0.4 ML SYRINGE. SQ SCH (20:14)
[2021-05-19] VITALS (24 sets, daily range): BP systolic 101–167; BP diastolic 75–105
[2021-05-19] MEDS: POTASSIUM CHLORIDE 20MEQ 100 ML IV SCH (00:14)
[2021-05-19] MEDS: DEXMEDETOMIDINE 400 MCG in IV NORMAL SALINE 100ML 96 ML IV PRN ×3 (02:34→19:48)
[2021-05-19] MEDS: PROPOFOL 100 ML IV PRN ×3 (04:28→22:37)
[2021-05-19] MEDS: INSULIN LISPRO 300 UNITS/3 ML VIAL. SQ SCH ×4 (05:39→23:58)
[2021-05-19] MEDS: PIPERACILLIN/TAZOBACTAM 3.375 GM in IV NORMAL SALINE 50ML 50 ML IV SCH ×4 (05:40→23:58)
[2021-05-19] MEDS: FAMOTIDINE 20 MG/2 ML VIAL IVP SCH ×2 (08:13→19:48)
[2021-05-19] MEDS: THIAMINE 100 MG TABLET. PO SCH (08:13)
[2021-05-19] MEDS: FOLIC ACID 1 MG TABLET. PO SCH (08:13)
[2021-05-19 08:19] LABS: BASE EXCESS ABG -7 mmol/L (-3-3); HCO3 ABG 17 mmol/L (21-28); PCO2 ABG 28 mmHg (35-46); PO2 ABG 106 mmHg (75-108); SAT O2 ABG 97 % (92-99)
[2021-05-19 08:48] LABS: FIO2 ABG 40/VENT
[2021-05-19 09:22] LABS: CREATININE 0.8 mg/dL (0.6-1.0); GFR 75.6; MAGNESIUM 2.6 mg/dL (1.8-2.4); POTASSIUM 4.1 mmol/L (3.5-5.1)
[2021-05-19 09:27] LABS: VANC TR 18.4 mcg/mL (10.0-20.0)
--- NOTE | 2021-05-19 09:35 | PDOC ---
PULMONARY PROGRESS NOTES DATE: 05/19/21 TIME: 09:33 Subjective Patient remains on assist control mode. This morning she is off sedation. No further seizures. Vitals Vital Signs Date Time Temp Pulse Resp B/P (MAP) Pulse Ox O2 Delivery O2 Flow Rate FiO2 05/19/21 09:00 72 18 149/90 100 Ventilator 05/19/21 08:00 99.4 99.4 05/18/21 18:46 60.0 General: No acute distress Lungs: Clear Cardiovascular: S1 Abdomen: Soft Neuro Exam: Alert Extremities: No Edema Skin: Warm Labs Laboratory Tests Test 05/17/21 17:00 05/17/21 17:30 05/17/21 17:45 05/17/21 17:53 White Blood Count 23.6 x10^3/uL (4.0-11.0) Red Blood Count 4.32 x10^6/uL (3.50-5.40) Hemoglobin 14.2 g/dL (12.0-15.5) Hematocrit 46.2 % (36.0-47.0) Mean Corpuscular Volume 107 fL (79-100) Mean Corpuscular Hemoglobin 33 pg (25-35) Mean Corpuscular Hemoglobin Concent 31 g/dL (31-37) Red Cell Distribution Width 14.6 % (11.5-14.5) Platelet Count 538 x10^3/uL (140-400) Neutrophils (%) (Auto) 68 % (31-73) Lymphocytes (%) (Auto) 25 % (24-48) Monocytes (%) (Auto) 6 % (0-9) Eosinophils (%) (Auto) 0 % (0-3) Basophils (%) (Auto) 1 % (0-3) Neutrophils # (Auto) 16.2 x10^3/uL (1.8-7.7) Lymphocytes # (Auto) 5.9 x10^3/uL (1.0-4.8) Monocytes # (Auto) 1.3 x10^3/uL (0.0-1.1) Eosinophils # (Auto) 0.1 x10^3/uL (0.0-0.7) Basophils # (Auto) 0.2 x10^3/uL (0.0-0.2) Segmented Neutrophils % 59 % (35-66) Band Neutrophils % 10 % (0-9) Lymphocytes % 24 % (24-48) Monocytes % 6 % (0-10) Eosinophils % 1 % (0-5) Platelet Estimate Increased (ADEQUATE) D-Dimer (Kaya) 0.72 ug/mlFEU (0.00-0.50) Sodium Level 141 mmol/L (136-145) Potassium Level 3.2 mmol/L (3.5-5.1) Chloride Level 98 mmol/L (98-107) Carbon Dioxide Level 14 mmol/L (21-32) Anion Gap 29 (6-14) Blood Urea Nitrogen 12 mg/dL (7-20) Creatinine 1.1 mg/dL (0.6-1.0) Estimated GFR (Cockcroft-Gault) 52.2 BUN/Creatinine Ratio 11 (6-20) Glucose Level 280 mg/dL (70-99) Lactic Acid Level 17.3 mmol/L (0.4-2.0) Calcium Level 8.9 mg/dL (8.5-10.1) Phosphorus Level 6.1 mg/dL (2.6-4.7) Magnesium Level 1.8 mg/dL (1.8-2.4) Total Bilirubin 0.1 mg/dL (0.2-1.0) Direct Bilirubin 0.1 mg/dL (0.0-0.2) Aspartate Amino Transf (AST/SGOT) 29 U/L (15-37) Alanine Aminotransferase (ALT/SGPT) 53 U/L (14-59) Alkaline Phosphatase 105 U/L (46-116) Ammonia 71 mcmol/L (11-34) Creatine Kinase 99 U/L (26-192) Troponin I High Sensitivity 21 ng/L (4-50) Total Protein 7.9 g/dL (6.4-8.2) Albumin 3.8 g/dL (3.4-5.0) Albumin/Globulin Ratio 0.9 (1.0-1.7) Salicylates Level 2.4 mg/dL (2.8-20.0) Salicylate Last Dose Date Unknown Salicylate Last Dose Time Unknown Acetaminophen Level < 2 mcg/ml (10-30) Acetaminophen Last Dose Date Unknown Acetaminophen Last Dose Time Unknonw Ethyl Alcohol Level < 10 mg/dL (0-10) O2 Saturation 99 % (92-99) Arterial Blood pH 7.07 (7.35-7.45) Arterial Blood pCO2 at Patient Temp 50 mmHg (35-46) Arterial Blood pO2 at Patient Temp 224 mmHg (75-108) Arterial Blood HCO3 14 mmol/L (21-28) Arterial Blood Base Excess -16 mmol/L (-3-3) Oxyhemoglobin 97.8 % Methemoglobin 0.6 % (0.0-1.9) Carbon Monoxide, Quantitative 0.3 % (0.0-1.9) FiO2 100 Glucose (Fingerstick) 265 mg/dL (70-99) Urine Collection Type Unknown Urine Color Yellow Urine Clarity Clear Urine pH 5.5 (<5.0-8.0) Urine Specific [place] 1.015 (1.000-1.030) Urine Protein >=300 mg/dL (NEG-TRACE) Urine Glucose (UA) 500 mg/dL (NEG) Urine Ketones (Stick) Negative mg/dL (NEG) Urine Blood Small (NEG) Urine Nitrite Negative (NEG) Urine Bilirubin Negative (NEG) Urine Urobilinogen Dipstick 0.2 mg/dL (0.2 mg/dL) Urine Leukocyte Esterase Negative (NEG) Urine RBC Occ /HPF (0-2) Urine WBC 0 /HPF (0-4) Urine Squamous Epithelial Cells Few /LPF Urine Bacteria 0 /HPF (0-FEW) Urine Mucus Slight /LPF Urine Opiates Screen Neg (NEG) Urine Methadone Screen Neg (NEG) Urine Barbiturates Neg (NEG) Urine Phencyclidine Screen Neg (NEG) Urine Amphetamine/Methamphetamine Neg (NEG) Urine Benzodiazepines Screen Pos (NEG) Urine Cocaine Screen Neg (NEG) Urine Cannabinoids Screen Pos (NEG) Urine Ethyl Alcohol Neg (NEG) Test 05/17/21 20:23 05/17/21 21:12 05/18/21 00:56 05/18/21 07:00 Lactic Acid Level 3.6 mmol/L (0.4-2.0) SARS-CoV-2 RNA (MG) Negative (Negative) SARS-CoV-2 Antigen (Rapid) Negative (NEGATIVE) O2 Saturation 99 % (92-99) Arterial Blood pH 7.46 (7.35-7.45) Arterial Blood pCO2 at Patient Temp 27 mmHg (35-46) Arterial Blood pO2 at Patient Temp 134 mmHg (75-108) Arterial Blood HCO3 19 mmol/L (21-28) Arterial Blood Base Excess -4 mmol/L (-3-3) FiO2 60 White Blood Count 9.8 x10^3/uL (4.0-11.0) Red Blood Count 3.49 x10^6/uL (3.50-5.40) Hemoglobin 11.7 g/dL (12.0-15.5) Hematocrit 34.3 % (36.0-47.0) Mean Corpuscular Volume 98 fL (79-100) Mean Corpuscular Hemoglobin 33 pg (25-35) Mean Corpuscular Hemoglobin Concent 34 g/dL (31-37) Red Cell Distribution Width 13.7 % (11.5-14.5) Platelet Count 300 x10^3/uL (140-400) Neutrophils (%) (Auto) 72 % (31-73) Lymphocytes (%) (Auto) 19 % (24-48) Monocytes (%) (Auto) 8 % (0-9) Eosinophils (%) (Auto) 1 % (0-3) Basophils (%) (Auto) 1 % (0-3) Neutrophils # (Auto) 7.1 x10^3/uL (1.8-7.7) Lymphocytes # (Auto) 1.9 x10^3/uL (1.0-4.8) Monocytes # (Auto) 0.8 x10^3/uL (0.0-1.1) Eosinophils # (Auto) 0.1 x10^3/uL (0.0-0.7) Basophils # (Auto) 0.1 x10^3/uL (0.0-0.2) Sodium Level 143 mmol/L (136-145) Potassium Level 2.4 mmol/L (3.5-5.1) Chloride Level 107 mmol/L (98-107) Carbon Dioxide Level 22 mmol/L (21-32) Anion Gap 14 (6-14) Blood Urea Nitrogen 10 mg/dL (7-20) Creatinine 0.9 mg/dL (0.6-1.0) Estimated GFR (Cockcroft-Gault) 66.0 Glucose Level 112 mg/dL (70-99) Calcium Level 7.5 mg/dL (8.5-10.1) Phosphorus Level 3.7 mg/dL (2.6-4.7) Magnesium Level 1.5 mg/dL (1.8-2.4) Procalcitonin 0.61 ng/mL (0.00-0.10) Test 05/18/21 08:00 05/18/21 13:00 05/18/21 18:04 05/18/21 23:39 O2 Saturation 94 % (92-99) Arterial Blood pH 7.50 (7.35-7.45) Arterial Blood pCO2 at Patient Temp 24 mmHg (35-46) Arterial Blood pO2 at Patient Temp 68 mmHg (75-108) Arterial Blood HCO3 18 mmol/L (21-28) Arterial Blood Base Excess -4 mmol/L (-3-3) FiO2 40/ac 24 450 +5 Glucose (Fingerstick) 109 mg/dL (70-99) 114 mg/dL (70-99) 135 mg/dL (70-99) Test 05/19/21 05:38 05/19/21 08:00 Glucose (Fingerstick) 143 mg/dL (70-99) O2 Saturation 97 % (92-99) Arterial Blood pH 7.40 (7.35-7.45) Arterial Blood pCO2 at Patient Temp 28 mmHg (35-46) Arterial Blood pO2 at Patient Temp 106 mmHg (75-108) Arterial Blood HCO3 17 mmol/L (21-28) Arterial Blood Base Excess -7 mmol/L (-3-3) FiO2 40/vent Laboratory Tests Test 05/18/21 13:00 05/18/21 18:04 05/18/21 23:39 05/19/21 05:38 Glucose (Fingerstick) 109 mg/dL (70-99) 114 mg/dL (70-99) 135 mg/dL (70-99) 143 mg/dL (70-99) Test 05/19/21 08:00 O2 Saturation 97 % (92-99) Arterial Blood pH 7.40 (7.35-7.45) Arterial Blood pCO2 at Patient Temp 28 mmHg (35-46) Arterial Blood pO2 at Patient Temp 106 mmHg (75-108) Arterial Blood HCO3 17 mmol/L (21-28) Arterial Blood Base Excess -7 mmol/L (-3-3) FiO2 40/vent Medications Active Scripts Medications Dose Route/Sig Max Daily Dose Days Date Category Prednisone 2.5 Mg Tablet 2 Tab PO DAILY 05/18/21 Reported Farxiga (Dapagliflozin Propanediol) 10 Mg Tablet 10 Mg PO UD 05/18/21 Reported Hydrochlorothiazide Tablet (Hydrochlorothiazide) 25 Mg Tablet 25 Mg PO DAILY 05/18/21 Reported Atorvastatin Calcium 40 Mg Tablet 1 Tab PO DAILY 05/18/21 Reported Metformin Hcl Er (Metformin Hcl) 500 Mg Tab.er.24h 500 Mg PO DAILYWBKFT 05/18/21 Reported Diltiazem 24Hr Cd (Diltiazem HCl) 240 Mg Cap.er.24h 1 Cap PO DAILY 30 05/18/21 Reported Cefdinir 300 Mg Capsule 1 Cap PO BID 05/18/21 Reported Chlorthalidone (Chlorthalidone) 25 Mg Tablet 50 Mg PO DAILY 05/18/21 Reported Omeprazole Magnesium 20 Mg Capsule.dr 1 Cap PO DAILY 30 05/18/21 Reported Metoprolol Tartrate 100 Mg Tablet 1 Tab PO BID 05/17/21 Reported Colchicine 0.6 Mg Capsule 0.6 Mg PO 05/17/21 Reported Impression . 1. Acute respiratory failure secondary to toxic encephalopathy/ seizures. She has a history of alcohol abuse and urine drug screen also positive for benzodiazepines and marijuana. 2. Acute toxic encephalopathy secondary to above. 3. No evidence of pulmonary embolism. Mild elevation in D-dimer is nonspecific. 4. Hypokalemia. Currently, being corrected. 5. Procalcitonin 0.61, but no obvious signs of pneumonia at present. 6. History of alcohol abuse and suicidal attempt in the past. 7. Leukocytosis, likely reactive, but is now resolved. 8. Seizures, likely ETOH induced. 9. Cannot exclude the possibly of anoxic encephalopathy. Patient was found unresponsive for almost an hour per patient's family Plan . 1. Continue present assist control mode changes based on ABGs. 2. She is currently off sedation. Not woken up yet. She does not trigger the ventilator but does have a gag reflex. 3. Empiric antibiotics for now. We will watch for any signs of aspiration. 4. Lovenox for DVT prophylaxis. 5. Stress ulcer prophylaxis. 6. Discussed with RN and RT. discussed with patient's daughter at the bedside in detail. WALDO EDUARDO MD May 19, 2021 09:35
[2021-05-19] MEDS: VANCOMYCIN PER PHARMACY MC PRN (09:52)
--- NOTE | 2021-05-19 09:54 | NUR ---
Pharmacy Vancomycin Dosing Note S: Consulted to monitor and dose vancomycin started 05/17/21. O: SANTO ATWOOD is a 50 year old F with Sepsis, Pneumonia Other Antibiotics: ZOSYN 3.375GM Q6HRS LABS: Last BUN: 12 Last Creatinine: 0.8 Creatinine Clearance: 82 mL/min Last WBC: 9.8 Last Procalcitonin: 0.61 Tmax (past 24 hours): 99.5 Microbiology: - I/O: 2263/1145 Drug Levels: Last Trough level: 18.4 on 05/19/21 at 0820 Last dose given 05/18/21 at 2124 Vancomycin Dosing: Dosing Weight: Actual Target Trough: 15-20 A: Based on: trough P: 1. Continue Vancomycin 1250 mg IV q12h 2. Follow up Trough level in 5 days if needed 3. Pharmacy will continue to monitor, follow and adjust therapy as needed. Awa Marquez RPH, 05/19/21 [id number]
[2021-05-19] MEDS: VANCOMYCIN 1.25 GM in IV NORMAL SALINE 250ML 250 ML IV SCH ×2 (10:02→19:48)
--- NOTE | 2021-05-19 10:45 | PDOC ---
[facility] PROGRESS NOTE Date of Service DOS: DATE: 05/19/21 TIME: 10:37 Chief Complaint Chief Complaint A/P: Acute encephalopathy - metabolic, possibly alcohol withdrawal, hepatic encephalopathy, sepsis Hypercapnic respiratory failure - likely related to seizure, possibly benzo related respiratory depression. Will monitor serial ABG on ventilator, consult pulmonology Seizure-like activity - possibly alcohol withdrawal, will maintain propofol, CIWA Sepsis - likely aspiration pneumonia vs pneumonitis, will give empiric zosyn, vancomycin Pneumonia - as above. High risk gram negative likely due to alcohol abuse history Alcohol abuse - likely in withdrawal Lactic acidosis - due to seizure vs sepsis. Will trend with fluids and antibiotics Electrolyte derangement -hypokalemia and hypo-[place] anemia likely due to alcohol-related illness will replace. Hyperammonemia -possibly with underlying cirrhosis. No history of Depakote ingestion per family FEN - NPO, NGT in place PPX - lovenox FULL CODE Dispo - ICU History of Present Illness History of Present Illness Ms Huddleston is a 51-year-old female past medical history HTN and alcohol abuse who presents to the ED brought in by EMS after family member (Son?) found patient unresponsive. She was initially minimally arousable with 0.5 mg Narcan IV and had seizure-like activity noted and 10 mg of Versed was given and she became hypoxic and stopped breathing and required bag valve mask. Family told ems that pt attempted suicide in 2006 and pt lost her son in 2017. ED staff noted patient was cyanotic appearing and still requiring bag valve mask ventilation and the decision was made to emergently intubate for airway prote ction and safe respirations. Labs with WBC 23.6 Hb 14.2 MCV 107 platelets 538 NA 140 1K3.2, BUN 12, CR 1.1, glucose 280, lactic acid 17.3, phosphorus 6.1 magnesium 1.8 LFTs within normal laboratory limits high-sensitivity troponin is 21, ammonia 71 CK 99, ABG 7.0 7/50/224, urine drug screen positive for benzodiazepines and cannabinoids, UA with small blood glucose and protein, rapid COVID-[address] head and cervical spine with no acute abnormalities, due to tachycardia she underwent CT pulmonary angiogram negative for pulmonary embolism. Chest radiograph with good ET tube and NGT positioning EKG appears sinus tachycardia 158, NAD, QTC 511, no T wave inversion, no ST elevation or ST depression Admitted to ICU for further care 11/26: Afebrile overnight. ABG 7.4/ 40% FiO2 PEEP of 5. On vent wean unable to follow any commands moving all 4 extremities. Discussed with daughter in the morning friends came to visit. Vitals/I&O Vitals/I&O: Vital Signs Date Time Temp Pulse Resp B/P (MAP) Pulse Ox O2 Delivery O2 Flow Rate FiO2 05/19/21 10:00 68 14 150/101 100 Ventilator 05/19/21 08:00 99.4 99.4 05/18/21 18:46 60.0 I & O 05/18/21 05/18/21 05/19/21 14:59 22:59 06:59 Intake Total 1464 ml 799 ml Output Total 550 ml 335 ml 260 ml Balance -550 ml 1129 ml 539 ml Physical Exam General: Other (Sedated on vent) Lungs: Clear Abdomen: Normal bowel sounds, Soft, No tenderness, No hepatosplenomegaly, No masses Extremities: No clubbing, No cyanosis, No edema, Normal pulses, No tenderness/swelling Skin: No rashes, No breakdown, No significant lesion Labs Labs: Laboratory Tests Test 05/18/21 13:00 05/18/21 18:04 05/18/21 23:39 05/19/21 05:38 Glucose (Fingerstick) 109 mg/dL (70-99) 114 mg/dL (70-99) 135 mg/dL (70-99) 143 mg/dL (70-99) Test 05/19/21 08:00 05/19/21 08:20 O2 Saturation 97 % (92-99) Arterial Blood pH 7.40 (7.35-7.45) Arterial Blood pCO2 at Patient Temp 28 mmHg (35-46) Arterial Blood pO2 at Patient Temp 106 mmHg (75-108) Arterial Blood HCO3 17 mmol/L (21-28) Arterial Blood Base Excess -7 mmol/L (-3-3) FiO2 40/vent Sodium Level 141 mmol/L (136-145) Potassium Level 4.1 mmol/L (3.5-5.1) Chloride Level 110 mmol/L (98-107) Carbon Dioxide Level 20 mmol/L (21-32) Anion Gap 11 (6-14) Blood Urea Nitrogen 12 mg/dL (7-20) Creatinine 0.8 mg/dL (0.6-1.0) Estimated GFR (Cockcroft-Gault) 75.6 Glucose Level 122 mg/dL (70-99) Calcium Level 8.0 mg/dL (8.5-10.1) Magnesium Level 2.6 mg/dL (1.8-2.4) Vancomycin Level Trough 18.4 mcg/mL (10.0-20.0) Vancomycin Last Dose Date 05/18/21 Vancomycin Last Dose Time 1999 Assessment and Plan Assessmemt and Plan Problems Medical Problems: (1) Altered mental status Status: Acute (2) Pneumonia Status: Acute (3) Seizure-like activity Status: Acute (4) Sepsis Status: Acute Comment Review of Relevant I have reviewed the following items constanza (where applicable) has been applied. Medications: Current Medications Medications (Trade) Dose Ordered Sig/Anna Route PRN Reason Start Time Stop Time Status Last Admin Dose Admin Vancomycin HCl (Vancomycin Trough Level) 1 each 1X ONCE MC 05/19/21 07:30 05/19/21 07:31 DC 05/19/21 07:30 Folic Acid (Folic Acid) 1 mg DAILY PO 05/18/21 12:00 05/19/21 08:13 Thiamine Mononitrate (Vitamin B-1) 100 mg DAILY PO 05/18/21 12:00 05/19/21 08:13 Lorazepam (Ativan Inj) 2 mg PRN Q1HR PRN IV For CIWA 15 or greater 05/18/21 11:15 05/18/21 20:14 Justifications for Admission Other Justification TODD ROBERSON MD May 19, 2021 10:45
[2021-05-19] MEDS: POTASSIUM CL 20MEQ D5-0.45NACL 1,000 ML IV SCH (17:05)
[2021-05-19] MEDS ORDERED: ROCURONIUM 50 MG/5 ML VIAL. IV ONE (17:45)
--- NOTE | 2021-05-19 18:40 | RAD ---
Exam: Chest one view INDICATION: Endotracheal tube TECHNIQUE: Frontal view of the chest Comparisons: 05/17/2021 FINDINGS: Endotracheal tube with tip approximately 2 cm above the albertina. Enteric tube traverses below the diap hragm distal extent not visualized. The cardiomediastinal silhouette and pulmonary vessels are within normal limits. The lung and pleural spaces are clear. IMPRESSION: Lines and tubes described above. Electronically signed by: Tova Goldstein MD (05/19/2021 6:38 PM) [place]
[2021-05-19] MEDS: ENOXAPARIN 40 MG/0.4 ML SYRINGE. SQ SCH (19:48)
[2021-05-20] VITALS (25 sets, daily range): BP systolic 107–182; BP diastolic 77–120
[2021-05-20] MEDS: PROPOFOL 100 ML IV PRN (01:51)
[2021-05-20 05:16] LABS: CALCIUM 8.1 mg/dL (8.5-10.1); CREATININE 0.8 mg/dL (0.6-1.0); GFR 75.6; POTASSIUM 3.7 mmol/L (3.5-5.1)
[2021-05-20] MEDS: INSULIN LISPRO 300 UNITS/3 ML VIAL. SQ SCH ×3 (06:00→18:00)
[2021-05-20] MEDS: PIPERACILLIN/TAZOBACTAM 3.375 GM in IV NORMAL SALINE 50ML 50 ML IV SCH ×3 (06:05→17:57)
[2021-05-20] MEDS: VANCOMYCIN 1.25 GM in IV NORMAL SALINE 250ML 250 ML IV SCH ×2 (08:18→19:42)
[2021-05-20] MEDS: FOLIC ACID 1 MG TABLET. PO SCH (08:53)
[2021-05-20] MEDS: FAMOTIDINE 20 MG/2 ML VIAL IVP SCH ×2 (08:53→19:43)
[2021-05-20] MEDS: THIAMINE 100 MG TABLET. PO SCH (09:00)
[2021-05-20 09:20] LABS: BASE EXCESS ABG -5 mmol/L (-3-3); HCO3 ABG 19 mmol/L (21-28); PCO2 ABG 30 mmHg (35-46); PO2 ABG 102 mmHg (75-108); SAT O2 ABG 97 % (92-99)
--- NOTE | 2021-05-20 09:53 | PDOC ---
PULMONARY PROGRESS NOTES DATE: 05/20/21 TIME: 09:52 Subjective Patient is now fully awake. She is following commands and moving her extremities. Currently on a CPAP trial. Vitals Vital Signs Date Time Temp Pulse Resp B/P (MAP) Pulse Ox O2 Delivery O2 Flow Rate FiO2 05/20/21 09:00 87 20 155/114 99 breathing trial 05/20/21 08:00 99.9 99.9 General: Alert, No acute distress Lungs: Clear Cardiovascular: S1 Abdomen: Soft Neuro Exam: Alert Extremities: No Edema Skin: Warm Labs Laboratory Tests Test 05/18/21 13:00 05/18/21 18:04 05/18/21 23:39 05/19/21 05:38 Glucose (Fingerstick) 109 mg/dL (70-99) 114 mg/dL (70-99) 135 mg/dL (70-99) 143 mg/dL (70-99) Test 05/19/21 08:00 05/19/21 08:20 05/19/21 17:50 05/19/21 23:57 O2 Saturation 97 % (92-99) Arterial Blood pH 7.40 (7.35-7.45) Arterial Blood pCO2 at Patient Temp 28 mmHg (35-46) Arterial Blood pO2 at Patient Temp 106 mmHg (75-108) Arterial Blood HCO3 17 mmol/L (21-28) Arterial Blood Base Excess -7 mmol/L (-3-3) FiO2 40/vent Sodium Level 141 mmol/L (136-145) Potassium Level 4.1 mmol/L (3.5-5.1) Chloride Level 110 mmol/L (98-107) Carbon Dioxide Level 20 mmol/L (21-32) Anion Gap 11 (6-14) Blood Urea Nitrogen 12 mg/dL (7-20) Creatinine 0.8 mg/dL (0.6-1.0) Estimated GFR (Cockcroft-Gault) 75.6 Glucose Level 122 mg/dL (70-99) Calcium Level 8.0 mg/dL (8.5-10.1) Magnesium Level 2.6 mg/dL (1.8-2.4) Vancomycin Level Trough 18.4 mcg/mL (10.0-20.0) Vancomycin Last Dose Date 05/18/21 Vancomycin Last Dose Time 1999 Glucose (Fingerstick) 132 mg/dL (70-99) 124 mg/dL (70-99) Test 05/20/21 04:49 Sodium Level 141 mmol/L (136-145) Potassium Level 3.7 mmol/L (3.5-5.1) Chloride Level 109 mmol/L (98-107) Carbon Dioxide Level 22 mmol/L (21-32) Anion Gap 10 (6-14) Blood Urea Nitrogen 8 mg/dL (7-20) Creatinine 0.8 mg/dL (0.6-1.0) Estimated GFR (Cockcroft-Gault) 75.6 Glucose Level 142 mg/dL (70-99) Calcium Level 8.1 mg/dL (8.5-10.1) Laboratory Tests Test 05/19/21 17:50 05/19/21 23:57 05/20/21 04:49 Glucose (Fingerstick) 132 mg/dL (70-99) 124 mg/dL (70-99) Sodium Level 141 mmol/L (136-145) Potassium Level 3.7 mmol/L (3.5-5.1) Chloride Level 109 mmol/L (98-107) Carbon Dioxide Level 22 mmol/L (21-32) Anion Gap 10 (6-14) Blood Urea Nitrogen 8 mg/dL (7-20) Creatinine 0.8 mg/dL (0.6-1.0) Estimated GFR (Cockcroft-Gault) 75.6 Glucose Level 142 mg/dL (70-99) Calcium Level 8.1 mg/dL (8.5-10.1) Medications Active Scripts Medications Dose Route/Sig Max Daily Dose Days Date Category Prednisone 2.5 Mg Tablet 2 Tab PO DAILY 05/18/21 Reported Farxiga (Dapagliflozin Propanediol) 10 Mg Tablet 10 Mg PO UD 05/18/21 Reported Hydrochlorothiazide Tablet (Hydrochlorothiazide) 25 Mg Tablet 25 Mg PO DAILY 05/18/21 Reported Atorvastatin Calcium 40 Mg Tablet 1 Tab PO DAILY 05/18/21 Reported Metformin Hcl Er (Metformin Hcl) 500 Mg Tab.er.24h 500 Mg PO DAILYWBKFT 05/18/21 Reported Diltiazem 24Hr Cd (Diltiazem HCl) 240 Mg Cap.er.24h 1 Cap PO DAILY 30 05/18/21 Reported Cefdinir 300 Mg Capsule 1 Cap PO BID 05/18/21 Reported Chlorthalidone (Chlorthalidone) 25 Mg Tablet 50 Mg PO DAILY 05/18/21 Reported Omeprazole Magnesium 20 Mg Capsule. 1 Cap PO DAILY 30 05/18/21 Reported Metoprolol Tartrate 100 Mg Tablet 1 Tab PO BID 05/17/21 Reported Colchicine 0.6 Mg Capsule 0.6 Mg PO 05/17/21 Reported Impression . 1. Acute respiratory failure secondary to toxic encephalopathy/ seizures. She has a history of alcohol abuse and urine drug screen also positive for benzodiazepines and marijuana. 2. Acute toxic encephalopathy secondary to above. 3. No evidence of pulmonary embolism. Mild elevation in D-dimer is nonspecific. 4. Hypokalemia. Currently, being corrected. 5. Procalcitonin 0.61, but no obvious signs of pneumonia at present. 6. History of alcohol abuse and suicidal attempt in the past. 7. Leukocytosis, likely reactive, but is now resolved. 8. Seizures, likely ETOH induced. Plan . 1. Patient is doing well on CPAP trial. She is fully awake. She is following commands. 2. We will proceed with extubation. 3. Empiric antibiotics for now. We will watch for any signs of aspiration. 4. Lovenox for DVT prophylaxis. 5. Stress ulcer prophylaxis. 6. Discussed with RN and RT. discussed with patient's daughter at the bedside in detail. WALDO EDUARDO MD May 20, 2021 09:53
--- NOTE | 2021-05-20 10:04 | PDOC ---
[facility] [facility] PROGRESS NOTE Date of Service DOS: DATE: 05/20/21 TIME: 09:11 Chief Complaint Chief Complaint A/P: Acute encephalopathy - metabolic, possibly alcohol withdrawal, hepatic encephalopathy, sepsis Hypercapnic respiratory failure - likely related to seizure, possibly benzo related respiratory depression. Will monitor serial ABG on ventilator, consult pulmonology Seizure-like activity - possibly alcohol withdrawal, will maintain propofol, CIWA Sepsis - likely aspiration pneumonia vs pneumonitis, will give empiric zosyn, vancomycin Pneumonia - as above. High risk gram negative likely due to alcohol abuse history Alcohol abuse - likely in withdrawal Lactic acidosis - due to seizure vs sepsis. Will trend with fluids and antibiotics Electrolyte derangement -hypokalemia and hypo-[place] anemia likely due to alcohol-related illness will replace. Hyperammonemia -possibly with underlying cirrhosis. No history of Depakote ingestion per family FEN - NPO, NGT in place PPX - lovenox FULL CODE Dispo - ICU History of Present Illness History of Present Illness Ms Huddleston is a 51-year-old female past medical history HTN and alcohol abuse who presents to the ED brought in by EMS after family member (Son?) found patient unresponsive. She was initially minimally arousable with 0.5 mg Narcan IV and had seizure-like activity noted and 10 mg of Versed was given and she became hypoxic and stopped breathing and required bag valve mask. Family told ems that pt attempted suicide in 2006 and pt lost her son in 2017. ED staff noted patient was cyanotic appearing and still requiring bag valve mask ventilation and the decision was made to emergently intubate for airway prote ction and safe respirations. Labs with WBC 23.6 Hb 14.2 MCV 107 platelets 538 NA 140 1K3.2, BUN 12, CR 1.1, glucose 280, lactic acid 17.3, phosphorus 6.1 magnesium 1.8 LFTs within normal laboratory limits high-sensitivity troponin is 21, ammonia 71 CK 99, ABG 7.0 7/50/224, urine drug screen positive for benzodiazepines and cannabinoids, UA with small blood glucose and protein, rapid COVID-[address] head and cervical spine with no acute abnormalities, due to tachycardia she underwent CT pulmonary angiogram negative for pulmonary embolism. Chest radiograph with good ET tube and NGT positioning EKG appears sinus tachycardia 158, NAD, QTC 511, no T wave inversion, no ST elevation or ST depression Admitted to ICU for further care 11/26: Afebrile overnight. ABG 7.4//106 40% FiO2 PEEP of 5. On vent wean unable to follow any commands moving all 4 extremities. Discussed with daughter in the morning friends came to visit. 05/20: Afebrile overnight. On vent wean alert following commands good tidal volume. Discussed with daughter and bedside. Cultures with no growth to date. cc time 33 min Vitals/I&O Vitals/I&O: Vital Signs Date Time Temp Pulse Resp B/P (MAP) Pulse Ox O2 Delivery O2 Flow Rate FiO2 05/20/21 08:51 98 173/114 05/20/21 08:12 100 Ventilator 05/20/21 08:00 99.9 14 99.9 I & O 05/19/21 05/19/21 05/20/21 14:59 22:59 06:59 Intake Total 1440.5 ml 1086 ml Output Total 235 ml 1515 ml 575 ml Balance -235 ml -74.5 ml 511 ml Physical Exam General: Alert, Cooperative Heart: Regular rate, Normal S1, Normal S2 Lungs: Clear Abdomen: Normal bowel sounds, Soft, No tenderness, No hepatosplenomegaly, No masses Extremities: No clubbing, No cyanosis, No edema, Normal pulses, No tenderness/swelling Skin: No rashes, No breakdown, No significant lesion Labs Labs: Laboratory Tests Test 05/19/21 17:50 05/19/21 23:57 05/20/21 04:49 Glucose (Fingerstick) 132 mg/dL (70-99) 124 mg/dL (70-99) Sodium Level 141 mmol/L (136-145) Potassium Level 3.7 mmol/L (3.5-5.1) Chloride Level 109 mmol/L (98-107) Carbon Dioxide Level 22 mmol/L (21-32) Anion Gap 10 (6-14) Blood Urea Nitrogen 8 mg/dL (7-20) Creatinine 0.8 mg/dL (0.6-1.0) Estimated GFR (Cockcroft-Gault) 75.6 Glucose Level 142 mg/dL (70-99) Calcium Level 8.1 mg/dL (8.5-10.1) Assessment and Plan Assessmemt and Plan Problems Medical Problems: (1) Altered mental status Status: Acute (2) Pneumonia Status: Acute (3) Seizure-like activity Status: Acute (4) Sepsis Status: Acute Comment Review of Relevant I have reviewed the following items constanza (where applicable) has been applied. Medications: Current Medications Medications (Trade) Dose Ordered Sig/Anna Route PRN Reason Start Time Stop Time Status Last Admin Dose Admin Rocuronium [place] (Zemuron) 50 mg 1X ONCE IV 05/19/21 17:45 05/19/21 17:46 DC 05/19/21 17:38 Justifications for Admission Other Justification TODD ROBERSON MD May 20, 2021 10:04
[2021-05-20] MEDS: VANCOMYCIN PER PHARMACY MC PRN (10:19)
[2021-05-20] MEDS: POTASSIUM CL 20MEQ D5-0.45NACL 1,000 ML IV SCH ×2 (11:56→15:20)
[2021-05-20] MEDS: hydrALAZINE 20 MG/ML VIAL. IVP PRN ×2 (12:15→14:11)
[2021-05-20] MEDS: METOPROLOL IV PUSH 5 MG/5 ML VIAL. IVP SCH ×2 (12:23→17:57)
[2021-05-20] MEDS: DEXMEDETOMIDINE 400 MCG in IV NORMAL SALINE 100ML 96 ML IV PRN ×2 (15:54→21:02)
[2021-05-20] MEDS: ENOXAPARIN 40 MG/0.4 ML SYRINGE. SQ SCH (19:42)
[2021-05-21] VITALS (14 sets, daily range): BP systolic 122–192; BP diastolic 2–115
[2021-05-21] MEDS: PIPERACILLIN/TAZOBACTAM 3.375 GM in IV NORMAL SALINE 50ML 50 ML IV SCH ×2 (00:22→05:43)
[2021-05-21] MEDS: METOPROLOL IV PUSH 5 MG/5 ML VIAL. IVP SCH ×2 (00:22→05:43)
[2021-05-21] MEDS: POTASSIUM CL 20MEQ D5-0.45NACL 1,000 ML IV SCH (04:11)
[2021-05-21 04:52] LABS: CALCIUM 8.7 mg/dL (8.5-10.1); CREATININE 0.9 mg/dL (0.6-1.0); POTASSIUM 3.5 mmol/L (3.5-5.1)
[2021-05-21] MEDS: INSULIN LISPRO 300 UNITS/3 ML VIAL. SQ SCH ×3 (05:49→12:00)
[2021-05-21] MEDS: FAMOTIDINE 20 MG/2 ML VIAL IVP SCH ×2 (07:57→19:39)
[2021-05-21] MEDS: VANCOMYCIN 1.25 GM in IV NORMAL SALINE 250ML 250 ML IV SCH (07:57)
[2021-05-21] MEDS: FOLIC ACID 1 MG TABLET. PO SCH (09:00)
[2021-05-21] MEDS: THIAMINE 100 MG TABLET. PO SCH (09:00)
--- NOTE | 2021-05-21 10:10 | PDOC ---
PULMONARY PROGRESS NOTES DATE: 05/21/21 TIME: 10:06 Subjective Patient extubated 05/20. Doing well on room air. Vitals Vital Signs Date Time Temp Pulse Resp B/P (MAP) Pulse Ox O2 Delivery O2 Flow Rate FiO2 05/21/21 09:00 70 20 185/105 99 Room Air 05/21/21 08:00 98.1 98.1 05/20/21 18:00 2.0 General: Alert, No acute distress Lungs: Clear Cardiovascular: S1 Abdomen: Soft Neuro Exam: Alert Extremities: No Edema Skin: Warm Labs Laboratory Tests Test 05/19/21 17:50 05/19/21 23:57 05/20/21 04:49 05/20/21 12:19 Glucose (Fingerstick) 132 mg/dL (70-99) 124 mg/dL (70-99) 135 mg/dL (70-99) Sodium Level 141 mmol/L (136-145) Potassium Level 3.7 mmol/L (3.5-5.1) Chloride Level 109 mmol/L (98-107) Carbon Dioxide Level 22 mmol/L (21-32) Anion Gap 10 (6-14) Blood Urea Nitrogen 8 mg/dL (7-20) Creatinine 0.8 mg/dL (0.6-1.0) Estimated GFR (Cockcroft-Gault) 75.6 Glucose Level 142 mg/dL (70-99) Calcium Level 8.1 mg/dL (8.5-10.1) Test 05/20/21 18:00 05/21/21 00:17 05/21/21 04:10 Glucose (Fingerstick) 136 mg/dL (70-99) 120 mg/dL (70-99) Sodium Level 144 mmol/L (136-145) Potassium Level 3.5 mmol/L (3.5-5.1) Chloride Level 108 mmol/L (98-107) Carbon Dioxide Level 23 mmol/L (21-32) Anion Gap 13 (6-14) Blood Urea Nitrogen 9 mg/dL (7-20) Creatinine 0.9 mg/dL (0.6-1.0) Estimated GFR (Cockcroft-Gault) 66.0 Glucose Level 116 mg/dL (70-99) Calcium Level 8.7 mg/dL (8.5-10.1) Laboratory Tests Test 05/20/21 12:19 05/20/21 18:00 05/21/21 00:17 05/21/21 04:10 Glucose (Fingerstick) 135 mg/dL (70-99) 136 mg/dL (70-99) 120 mg/dL (70-99) Sodium Level 144 mmol/L (136-145) Potassium Level 3.5 mmol/L (3.5-5.1) Chloride Level 108 mmol/L (98-107) Carbon Dioxide Level 23 mmol/L (21-32) Anion Gap 13 (6-14) Blood Urea Nitrogen 9 mg/dL (7-20) Creatinine 0.9 mg/dL (0.6-1.0) Estimated GFR (Cockcroft-Gault) 66.0 Glucose Level 116 mg/dL (70-99) Calcium Level 8.7 mg/dL (8.5-10.1) Medications Active Scripts Medications Dose Route/Sig Max Daily Dose Days Date Category Prednisone 2.5 Mg Tablet 2 Tab PO DAILY 05/18/21 Reported Farxiga (Dapagliflozin Propanediol) 10 Mg Tablet 10 Mg PO UD 05/18/21 Reported Hydrochlorothiazide Tablet (Hydrochlorothiazide) 25 Mg Tablet 25 Mg PO DAILY 05/18/21 Reported Atorvastatin Calcium 40 Mg Tablet 1 Tab PO DAILY 05/18/21 Reported Metformin Hcl Er (Metformin Hcl) 500 Mg Tab.er.24h 500 Mg PO DAILYWBKFT 05/18/21 Reported Diltiazem 24Hr Cd (Diltiazem HCl) 240 Mg Cap.er.24h 1 Cap PO DAILY 30 05/18/21 Reported Cefdinir 300 Mg Capsule 1 Cap PO BID 05/18/21 Reported Chlorthalidone (Chlorthalidone) 25 Mg Tablet 50 Mg PO DAILY 05/18/21 Reported Omeprazole Magnesium 20 Mg Capsule.dr 1 Cap PO DAILY 30 05/18/21 Reported Metoprolol Tartrate 100 Mg Tablet 1 Tab PO BID 05/17/21 Reported Colchicine 0.6 Mg Capsule 0.6 Mg PO 05/17/21 Reported Impression . 1. Acute respiratory failure secondary to toxic encephalopathy/ seizures. She has a history of alcohol abuse and urine drug screen also positive for benzodiazepines and marijuana. 2. Acute toxic encephalopathy secondary to above. Resolved. 3. No evidence of pulmonary embolism. Mild elevation in D-dimer is nonspecific. 4. Hypokalemia. Currently, being corrected. 5. Procalcitonin 0.61, but no obvious signs of pneumonia at present. 6. History of alcohol abuse and suicidal attempt in the past. 7. Leukocytosis, likely reactive, but is now resolved. 8. Seizures, likely ETOH induced. Plan . 1. Patient is doing well on room air. She is extubated 05/20/2021. She is fully awake. She is following commands. 2. Transfer out of ICU. 3. Discontinue IV antibiotics. Change to p.o. doxycycline. 4. Lovenox for DVT prophylaxis. 5. Stress ulcer prophylaxis. 6. Discussed with RN . discussed with patient's daughter at the bedside in detail. Discussed with Dr. Covarrubias. Patient's pulmonary status is very stable. No further recommendations. Will sign off. WALDO EDUARDO MD May 21, 2021 10:10
--- NOTE | 2021-05-21 10:22 | PDOC ---
[employer] [facility] PROGRESS NOTE Date of Service DOS: DATE: 05/21/21 TIME: 10:18 Chief Complaint Chief Complaint A/P: Acute encephalopathy - metabolic, possibly alcohol withdrawal, hepatic encephalopathy, sepsis Hypercapnic respiratory failure - likely related to seizure, possibly benzo related respiratory depression. Extubated 05/20/2021 Seizure-like activity - possibly alcohol withdrawal, CIWA Sepsis - likely aspiration pneumonia vs pneumonitis, will give po doxy Pneumonia - as above. High risk gram negative likely due to alcohol abuse history Alcohol abuse - likely in withdrawal Lactic acidosis - due to seizure vs sepsis. Will trend with fluids and antibiotics Electrolyte derangement -hypokalemia and hypo-[place] anemia likely due to alcohol-related illness will replace. Hyperammonemia -possibly with underlying cirrhosis. No history of Depakote ingestion per family FEN - ADAT PPX - lovenox FULL CODE Dispo - Med/surg History of Present Illness History of Present Illness Ms Huddleston is a 51-year-old female past medical history HTN and alcohol abuse who presents to the ED brought in by EMS after family member (Son?) found patient unresponsive. She was initially minimally arousable with 0.5 mg Narcan IV and had seizure-like activity noted and 10 mg of Versed was given and she became hypoxic and stopped breathing and required bag valve mask. Family told ems that pt attempted suicide in 2006 and pt lost her son in 2017. ED staff noted patient was cyanotic appearing and still requiring bag valve mask ventilation and the decision was made to emergently intubate for airway protection and safe respirations. Labs with WBC 23.6 Hb 14.2 MCV 107 platelets 538 NA 140 1K3.2, BUN 12, CR 1.1, glucose 280, lactic acid 17.3, phosphorus 6.1 magnesium 1.8 LFTs within normal laboratory limits high-sensitivity troponin is 21, ammonia 71 CK 99, ABG 7.0 /, urine drug screen positive for benzodiazepines and cannabinoids, UA wi th small blood glucose and protein, rapid COVID-[address] head and cervical spine with no acute abnormalities, due to tachycardia she underwent CT pulmonary angiogram negative for pulmonary embolism. Chest radiograph with good ET tube and NGT positioning EKG appears sinus tachycardia 158, NAD, QTC 511, no T wave inversion, no ST elevation or ST depression Admitted to ICU for further care 05/19: Afebrile overnight. ABG 7.4 40% FiO2 PEEP of 5. On vent wean unable to follow any commands moving all 4 extremities. Discussed with daughter in the morning friends came to visit. 05/20: Afebrile overnight. On vent wean alert following commands good tidal volume. Discussed with daughter and bedside. Cultures with no growth to date. 05/21: Afebrile. Extubated able to get up with nursing for bowel movement. She is asking if she can go home today. No cough. Leukocytosis improved. BP improved. D/w pulm Vitals/I&O Vitals/I&O: Vital Signs Date Time Temp Pulse Resp B/P (MAP) Pulse Ox O2 Delivery O2 Flow Rate FiO2 05/21/21 09:00 70 20 185/105 99 Room Air 05/21/21 08:00 98.1 98.1 05/20/21 18:00 2.0 I & O 05/20/21 05/20/21 05/21/21 15:00 23:00 07:00 Intake Total 1148.5 ml 1188 ml Output Total 950 ml 1675 ml 400 ml Balance -950 ml -526.5 ml 788 ml Physical Exam General: Alert, Oriented X3, Cooperative Heart: Regular rate, Normal S1, Normal S2 Lungs: Clear Abdomen: Normal bowel sounds, Soft, No tenderness, No hepatosplenomegaly, No masses Extremities: No clubbing, No cyanosis, No edema, Normal pulses, No tenderness/swelling Skin: No rashes, No breakdown, No significant lesion Labs Labs: Laboratory Tests Test 05/20/21 12:19 05/20/21 18:00 05/21/21 00:17 05/21/21 04:10 Glucose (Fingerstick) 135 mg/dL (70-99) 136 mg/dL (70-99) 120 mg/dL (70-99) Sodium Level 144 mmol/L (136-145) Potassium Level 3.5 mmol/L (3.5-5.1) Chloride Level 108 mmol/L (98-107) Carbon Dioxide Level 23 mmol/L (21-32) Anion Gap 13 (6-14) Blood Urea Nitrogen 9 mg/dL (7-20) Creatinine 0.9 mg/dL (0.6-1.0) Estimated GFR (Cockcroft-Gault) 66.0 Glucose Level 116 mg/dL (70-99) Calcium Level 8.7 mg/dL (8.5-10.1) Assessment and Plan Assessmemt and Plan Problems Medical Problems: (1) Altered mental status Status: Acute (2) Pneumonia Status: Acute (3) Seizure-like activity Status: Acute (4) Sepsis Status: Acute Comment Review of Relevant I have reviewed the following items constanza (where applicable) has been applied. Medications: Current Medications Medications (Trade) Dose Ordered Sig/Anna Route PRN Reason Start Time Stop Time Status Last Admin Dose Admin Hydralazine HCl (Apresoline Inj) 10 mg PRN Q4HRS PRN IVP ELEVATED BP, SEE COMMENTS 05/20/21 12:15 05/20/21 14:11 Metoprolol Tartrate (Lopressor Vial) 5 mg Q6HRS IVP 05/20/21 12:15 05/21/21 05:43 Justifications for Admission Other Justification TODD ROBERSON MD May 21, 2021 10:21
[2021-05-21] MEDS: hydrALAZINE 20 MG/ML VIAL. IVP PRN ×3 (10:23→22:56)
[2021-05-21] MEDS: ACETAMINOPHEN 650 MG/20.3 ML SOLUTION. PO PRN (11:10)
[2021-05-21] MEDS: METOPROLOL TART IMMED RELEASE 50 MG TABLET. PO SCH ×2 (11:13→19:39)
[2021-05-21] MEDS ORDERED: ACETAMINOPHEN 325 MG TABLET. PO PRN (15:15)
[2021-05-21] MEDS ORDERED: MORPHINE SULFATE 2 MG/ML INJ. IVP ONE (16:30)
[2021-05-21 17:00] LABS: FIO2 ABG 40% PS10 peep 5
[2021-05-21] MEDS ORDERED: DEXTROSE 50% 25 GM / 50ML DISP.SYRIN. IV PRN (19:15)
[2021-05-21] MEDS ORDERED: oxyCODONE/APAP 5/325 1 TAB TABLET PO PRN (19:30)
[2021-05-21] MEDS: DOXYCYCLINE HYCLATE 100 MG TABLET PO SCH (19:38)
[2021-05-21] MEDS: ENOXAPARIN 40 MG/0.4 ML SYRINGE. SQ SCH (19:39)
[2021-05-21] MEDS: oxyCODONE/APAP 5/325 1 TAB TABLET PO PRN (19:40)
[2021-05-22] MEDS: oxyCODONE/APAP 5/325 1 TAB TABLET PO PRN ×2 (00:26→04:49)
[2021-05-22 00:29] VITALS: BP 198/106
[2021-05-22] MEDS: hydrALAZINE 20 MG/ML VIAL. IVP PRN (03:30)
[2021-05-22 03:42] VITALS: BP 186/114
[2021-05-22 04:51] VITALS: BP 179/117
[2021-05-22] MEDS: METOPROLOL TART IMMED RELEASE 50 MG TABLET. PO SCH (05:39)
[2021-05-22] MEDS ORDERED: LISI-130 PO (05:41)
[2021-05-22] MEDS: INSULIN LISPRO 300 UNITS/3 ML VIAL. SQ SCH ×2 (08:00→12:00)
[2021-05-22 08:59] VITALS: BP 172/102
[2021-05-22] MEDS ORDERED: ATORVASTATIN CALCIUM 40 MG TABLET. PO SCH (09:00)
--- NOTE | 2021-05-22 10:38 | NUR ---
SW following. Discussed with RN, pt from home, room air, ada diet. COVID-19 negative. Pulmonology following. PT/OT ordered. Med Assist following for self pay status. RN anticipates possible discharge home today. SW will continue to follow.
[2021-05-22] MEDS: FAMOTIDINE 20 MG/2 ML VIAL IVP SCH (10:58)
[2021-05-22] MEDS: DOXYCYCLINE HYCLATE 100 MG TABLET PO SCH (10:59)
[2021-05-22] MEDS: FOLIC ACID 1 MG TABLET. PO SCH (11:00)
[2021-05-22] MEDS: THIAMINE 100 MG TABLET. PO SCH (11:00)
[2021-05-22] MEDS ORDERED: HYDR-2761 PO (11:24)
[2021-05-22] MEDS ORDERED: DOXY100T PO (11:24)
[2021-05-22] MEDS ORDERED: ATOR40TA59 PO (11:24)
--- NOTE | 2021-05-22 11:38 | DS ---
DATE OF DISCHARGE: 05/22/2021 ADMITTING DIAGNOSES: Sepsis and respiratory failure, encephalopathy, probable aspiration pneumonia. DISCHARGE DIAGNOSES: Resolving sepsis, resolving respiratory failure (she had to be intubated for a few days), history of hypertension and alcohol, tubal ligation, resolving aspiration pneumonia. CONSULTS: Dr. Hancock. PROCEDURES: None. 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 Basically, she presented with respiratory failure and encephalopathy, it seems as though she may have aspirated. She was intubated and admitted to the ICU on IV antibiotics. Dr. Hancock was consulted. We weaned her off the ventilator over the past few days. Today, I saw and examined on the medical floor. She is doing great, wants to go home. We plan to discharge. DISPOSITION: Home. ACTIVITY: As tolerated. DIET: Low sodium. DISCHARGE MEDICATIONS: 1. Doxycycline 100 p.o. b.i.d. for 1 more week. 2. [place] 5 mg/325 one q.8 p.r.n., 20 tablets were prescribed. 3. Atorvastatin 40 a day. 4. Chlorthalidone 50 a day. 5. Colchicine 0.6 daily. 6. Lisinopril 40 a day. 7. Metformin 500 daily with breakfast. 8. Metoprolol 100 mg 1 b.i.d. 9. Omeprazole 20 a day. TOTAL TIME: 31 minutes. [facility] [place] DR: Jen TID: [id number]
--- NOTE | 2021-05-22 11:42 | PDOC ---
[employer] PROGRESS NOTE Date of Service DOS: DATE: 05/22/21 TIME: 11:37 Chief Complaint Chief Complaint Acute encephalopathy Hypercapnic respiratory failure. Extubated 05/20/2021 Seizure-like activity Sepsis Pneumonia Alcohol abuse Lactic acidosis Electrolyte derangement Hyperammonemia History of Present Illness History of Present Illness 05/22/2021 Patient seen and examined Chart reviewed Discussed with RN Patient very cheerful today. Would like to go home if possible. Plan for discharge home today. Patient denies benzodiazepine use although she tested positive on admission. Requesting prescription for pain meds. Pulmonology has signed off on the patient and ok with discharge home with PO doxycycline. Vitals/I&O Vitals/I&O: Vital Signs Date Time Temp Pulse Resp B/P (MAP) Pulse Ox O2 Delivery O2 Flow Rate FiO2 05/22/21 08:59 98.7 68 18 172/102 (125) 93 Room Air 98.7 05/21/21 17:10 2.0 I & O 05/21/21 05/21/21 05/22/21 15:00 23:00 07:00 Intake Total 733 ml 100 ml Output Total 350 ml Balance 383 ml 100 ml Physical Exam General: Alert, Oriented X3, Cooperative Heart: Regular rate, Normal S1, Normal S2 Lungs: Clear Abdomen: Normal bowel sounds, Soft, No tenderness, No hepatosplenomegaly, No masses Extremities: No clubbing, No cyanosis, No edema, Normal pulses, No tenderness/swelling Skin: No rashes, No breakdown, No significant lesion Labs Labs: Laboratory Tests Test 05/21/21 16:57 05/21/21 19:45 05/22/21 09:08 Glucose (Fingerstick) 112 mg/dL (70-99) 81 mg/dL (70-99) 104 mg/dL (70-99) Assessment and Plan Assessmemt and Plan Problems Medical Problems: (1) Altered mental status Status: Acute (2) Pneumonia Status: Acute (3) Seizure-like activity Status: Acute (4) Sepsis Status: Acute Acute encephalopathy Hypercapnic respiratory failure. Extubated 05/20/2021 Seizure-like activity Sepsis Pneumonia Alcohol abuse Lactic acidosis Electrolyte derangement Hyperammonemia Plan: Discharge home today Prescription for doxycycline Home meds DVT prophylaxis Appreciate subspecialist input Comment Review of Relevant I have reviewed the following items constanza (where applicable) has been applied. Medications: Current Medications Medications (Trade) Dose Ordered Sig/Anna Route PRN Reason Start Time Stop Time Status Last Admin Dose Admin Doxycycline Hyclate (Vibra-Tab) 100 mg BID PO 05/21/21 21:00 05/22/21 10:59 Atorvastatin Calcium (Lipitor) 40 mg DAILY PO 05/22/21 09:00 05/22/21 10:59 Acetaminophen (Tylenol) 650 mg PRN Q6HRS PRN PO MILD PAIN / TEMP > 100.3'F 05/21/21 15:15 05/21/21 15:20 Morphine Sulfate (Morphine Sulfate) 2 mg 1X ONCE IVP 05/21/21 16:30 05/21/21 16:34 DC 05/21/21 16:40 Oxycodone/ Acetaminophen (Percocet 5/325) 1 tab PRN Q4HRS PRN PO PAIN 05/21/21 19:30 05/22/21 04:49 Justifications for Admission Other Justification GHISLAINE RUIZ III DO May 22, 2021 11:42
[2021-05-22] MEDS ORDERED: LACTOBACILLUS RHAMNOSUS GG 1 CAPSULE. PO SCH (12:00)
== END 2021-05-22 13:40 | disposition home or self-care (01) | DRG 871 ==
LOC: ER 16:57 → EDBD 16:57 → 1 WEST ICU 19:29 → 5 NORTH 05-21 22:11
PROVIDERS: ADMIT Internal Medicine; ATTEND Internal Medicine
PROC: 5A1945Z Respiratory Ventilation, 24-96 Consecutive Hours (ICD-10-PCS; principal; 2021-05-17)
PROC: 0BH17EZ Insertion of Endotracheal Airway into Trachea, Via Natural or Artificial Opening (ICD-10-PCS; 2021-05-17)
DX: A41.9 Sepsis, unspecified organism (principal); G92.9 Unspecified toxic encephalopathy; J69.0 Pneumonitis due to inhalation of food and vomit; J96.01 Acute respiratory failure with hypoxia; J96.02 Acute respiratory failure with hypercapnia; E72.20 Disorder of urea cycle metabolism, unspecified; J98.11 Atelectasis; D64.9 Anemia, unspecified; E87.6 Hypokalemia; F10.10 Alcohol abuse, uncomplicated; I10 Essential (primary) hypertension; R56.9 Unspecified convulsions; Z82.49 Family history of ischemic heart disease and other diseases of the circulatory system; Z83.3 Family history of diabetes mellitus; Z91.51 Personal history of suicidal behavior; Z98.51 Tubal ligation status; Z20.822 Contact with and (suspected) exposure to COVID-19
CPT/HCPCS: 31500; 36415; 36600; 70450; 71045; 71275; 72125; 80048; 80053; 80202; 80307; 80329; 81001; 82140; 82248; 82550; 82805; 82962; 83605; 83735; 84100; 84145; 84484; 85007; 85025; 85379; 87040; 87426; 93005; 94002; 94003; 96361; 96365; 96368; 96375; G0480; J0330; J0360; J1650; J1815; J2060; J2250; J2270; J2543; J2704; J3010; J3370; J3411; J3475; J3480; J3490; J7030; J7040; J7050; Q9967; U0003; U0005; 92610-GN; 99291-25; G0378